=== PATIENT | female | born 1935 | race Caucasian/White ===

== ENCOUNTER 2019-08-03 14:37 | Inpatient (IN) | payer MEDICARE ==
[2019-08-03] MEDS ORDERED: TORAdol 30 mg Injection IV ONE (15:05)
[2019-08-03] MEDS ORDERED: Zofran 4 MG/2 ML VIAL IV ONE (15:06)
[2019-08-03] MEDS ORDERED: Zofran 4 MG/2 ML VIAL ONE (15:07)
[2019-08-03] MEDS ORDERED: TORAdol 30 mg Injection ONE (15:08)
--- NOTE | 2019-08-03 15:15 | ERPHSYRPT ---
- History of Present Illness Time Seen by Provider: 08/03/19 14:40 Historian: patient Exam Limitations: no limitations Patient Subjective Stated Complaint: Pt states that last night she began having pain in her upper epigastric region that seens wrap around under her breasts and to her neck, states that the pain comes and goes Triage Nursing Assessment: Pt brought herself to the ER and states that one of her daughters can come and get her if needed, hypertensive, rates pain 6/10, states that it feels like spasms in her upper stomach but then she states that she can't stand the pressure of her waistband around her lower abdomen, pulses normal, bowel sounds heard in all 4 quadrants, abdomen is distended and hard and when asked if this was normal the pt did not know, skin n/w/d, last intake was at 1200 Physician History: 84 yo wf w diffuse abdominal pain x 15 hours. Pain is 8/10, cramping, up to a 10 , better w remaining still, worse w movement. Pt has had some nausea but denies V/D/melena/hematochezia/dysuria/hematuria/fever/cough/chest pain/dyspnea. Timing/Duration: other (15 hrs) Activities at Onset: none Quality: cramping Abdominal Pain Onset Location: generalized abdomen Pain Radiation: back Severity of Pain-Max: severe Severity of Pain-Current: severe Modifying Factors: Improves With: movement, walking Associated Symptoms: nausea Previous symptoms: no prior history Allergies/Adverse Reactions: No Known Drug Allergies Allergy (Verified 08/03/19 14:56) Home Medications: Aspirin 81 gm Chew [Baby Aspirin 81 mg Chew] 81 mg PO HS 05/01/13 [History ] Carvedilol 6.25 mg [Coreg 6.25 MG] 12.5 mg PO BID PRN 05/01/13 [History] Losartan Potassium 50 mg [Cozaar 50 MG] 100 mg PO DAILY 05/01/13 [History] Paroxetine HCl 5 mg PO DAILY 05/01/13 [History] Alendronate Sodium 70 mg PO WEEKLY 08/03/19 [History] Amlodipine Besylate 5 mg [Norvasc 5 mg] 5 mg PO DAILY 08/03/19 [History] Atorvastatin Calcium [Lipitor] 80 mg PO DAILY 08/03/19 [History] Furosemide 20 mg [Lasix 20 mg] 20 mg PO DAILY 08/03/19 [History] Hx Tetanus, Diphtheria Vaccination/Date Given: No Hx Influenza Vaccination/Date Given: Yes (2012) Hx Pneumococcal Vaccination/Date Given: Yes Travel Risk - International Travel Have you traveled outside of the country in past 3 weeks: No Have you or anyone close to you been diagnosed with or: No Do your reside in a community with a known COVID-19 case?: Yes If Yes where:: [place] - Coronavirus Screening Has patient experienced Coronavirus symptoms: No - Review of Systems Constitutional: No Symptoms Eyes: No Symptoms Ears, Nose, & Throat: No Symptoms Respiratory: No Symptoms Cardiac: No Symptoms Abdominal/Gastrointestinal: Abdominal Pain, Nausea Genitourinary Symptoms: No Symptoms Musculoskeletal: No Symptoms Skin: No Symptoms Neurological: No Symptoms Psychological: No Symptoms Endocrine: No Symptoms Hematologic/Lymphatic: No Symptoms Immunological/Allergic: No Symptoms - Past Medical History Pertinent Past Medical History: Yes Neurological History: No Pertinent History ENT History: No Pertinent History Cardiac History: High Cholesterol, Hypertension Respiratory History: No Pertinent History Endocrine Medical History: No Pertinent History Musculoskeletal History: No Pertinent History GI Medical History: Diverticulitis, Diverticulosis History: No Pertinent History Psycho-Social History: Depression - Past Surgical History Past Surgical History: Yes Neuro Surgical History: No Pertinent History Cardiac: No Pertinent History Respiratory: No Pertinent History Gastrointestinal: Appendectomy, Bowel Surgery Genitourinary: No Pertinent History Musculoskeletal: No Pertinent History Female Surgical History: Hysterectomy Other Surgical History: plate in left wrist., blocked bowel that required straightening of her colon - Social History Smoking Status: Never smoker Exposure to second hand smoke: No Drug Use: none Patient Lives Alone: Yes Significant Family History: no pertinent family hx - Nursing Vital Signs Nursing Vital Signs: Initial Vital Signs Temperature 97.6 F 08/03/19 14:42 Pulse Rate 65 08/03/19 14:42 Blood Pressure 172/66 08/03/19 14:42 O2 Sat by Pulse Oximetry 99 08/03/19 14:42 Pain Scale Pain Intensity 4 - Physical Exam Eye Exam: PERRL/EOMI, eyes nml inspection Ears, Nose, Throat Exam: normal ENT inspection, TMs normal, pharynx normal Neck Exam: normal inspection, non-tender, supple, full range of motion Respiratory Exam: normal breath sounds, lungs clear, airway intact Cardiovascular Exam: regular rate/rhythm, normal heart sounds, normal peripheral pulses, No murmur Gastrointestinal/Abdomen Exam: soft, tenderness, distention Pelvic Exam: not done Rectal Exam: deferred Back Exam: normal inspection Extremity Exam: normal inspection, normal range of motion Neurologic Exam: alert, oriented x 3, cooperative, fermentation manager II-XII nml as tested, normal mood/affect, nml cerebellar function, nml station & gait, sensation nml, No motor deficits, No sensory deficit Skin Exam: normal color, warm, dry Lymphatic Exam: No adenopathy SpO2 Interpretation: normal SpO2: 99 O2 Delivery: Room Air Ordered Tests: Active Orders 24 hr Category Date Time Status EKG-ER Only STAT Care 08/03/19 15:04 Active IV Insertion STAT Care 08/03/19 15:04 Active ABDOMEN AND PELVIS W CONTRAST [CT] Stat Exams 08/03/19 15:56 Taken AMYLASE Stat Lab 08/03/19 15:00 Completed CBC W DIFF Stat Lab 08/03/19 15:00 Completed CMP Stat Lab 08/03/19 15:00 Completed LIPASE Stat Lab 08/03/19 15:00 Completed TROPONIN Q3H Lab 08/03/19 15:00 Completed TROPONIN Q3H Lab 08/03/19 18:15 Ordered TROPONIN Q3H Lab 08/03/19 21:15 Ordered TROPONIN Q3H Lab 08/04/19 00:15 Ordered TROPONIN Q3H Lab 08/04/19 03:15 Ordered UA W/RFX UR CULTURE Stat Lab 08/03/19 15:14 Completed Medication Summary Discontinued Medications Generic Name Dose Route Start Last Admin Trade Name Myrtle PRN Reason Stop Dose Admin Fentanyl Citrate 50 mcg 08/03/19 15:55 08/03/19 15:59 Sublimaze 100 Mcg/2 Ml IV 08/03/19 15:56 50 mcg STAT ONE Administration Fentanyl Citrate Confirm 08/03/19 15:57 Sublimaze 100 Mcg/2 Ml Administered 08/03/19 15:58 Dose 100 mcg .ROUTE .[facility] ONE Ketorolac Tromethamine 15 mg 08/03/19 15:05 08/03/19 15:11 Toradol 30 Mg Injection IV 08/03/19 15:06 15 mg STAT ONE Administration Ketorolac Tromethamine Confirm 08/03/19 15:08 Toradol 30 Mg Injection Administered 08/03/19 15:09 Dose 30 mg .ROUTE .[facility] ONE Ondansetron HCl 4 mg 08/03/19 15:06 08/03/19 15:11 Zofran 4 Mg/2 Ml Vial IV 08/03/19 15:07 4 mg STAT ONE Administration Ondansetron HCl Confirm 08/03/19 15:07 Zofran 4 Mg/2 Ml Vial Administered 08/03/19 15:08 Dose 4 mg .ROUTE .[facility] ONE Lab/Rad Data: Laboratory Result Diagrams 08/03/19 15:00 08/03/19 15:00 Laboratory Results 08/03/19 08/03/19 08/03/19 Range/Units 15:14 15:00 15:00 WBC (4.0-10.5) K/mm3 RBC (4.1-5.4) M/mm3 Hgb (12.0-16.0) gm/dl Hct (35-47) % MCV (78-100) fl MCH (26-32) pg MCHC (32-36) g/dl RDW (11.5-14.0) % Plt Count (150-450) K/mm3 MPV (7.5-11.0) fl Gran % (36.0-66.0) % Eos # (Auto) (0-0.5) Absolute Lymphs (auto) (1.0-4.6) Absolute Monos (auto) (0.0-1.3) Lymphocytes % (24.0-44.0) % Monocytes % (0.0-12.0) % Eosinophils % (0.00-5.0) % Basophils % (0.0-0.4) % Absolute Granulocytes (1.4-6.9) Basophils # (0-0.4) Sodium 139 (137-145) mmol/L Potassium 3.9 (3.5-5.1) mmol/L Chloride 103 (98-107) mmol/L Carbon Dioxide 27 (22-30) mmol/L Anion Gap 12.3 (5-15) MEQ/L BUN 14 (7-17) mg/dL Creatinine 0.70 (0.52-1.04) mg/dL Estimated GFR > 60.0 ML/MIN Glucose 129 H (74-106) mg/dL Calcium 9.3 (8.4-10.2) mg/dL Total Bilirubin 1.00 (0.2-1.3) mg/dL AST 23 (14-36) U/L ALT 18 (0-35) U/L Alkaline Phosphatase 78 (38-126) U/L Troponin I < 0.012 (0.000-0.034) ng/mL Serum Total Protein 7.3 (6.3-8.2) g/dL Albumin 4.4 (3.5-5.0) g/dL Amylase 65 (30-110) U/L Lipase 170 (23-300) U/L Urine Color YELLOW (YELLOW) Urine Appearance CLEAR (CLEAR) Urine pH 5.0 (5-6) Ur Specific [place] 1.013 (1.005-1.025) Urine Protein NEGATIVE (Negative) Urine Ketones NEGATIVE (NEGATIVE) Urine Blood NEGATIVE (0-5) Jean/ul Urine Nitrite NEGATIVE (NEGATIVE) Urine Bilirubin NEGATIVE (NEGATIVE) Urine Urobilinogen NEGATIVE (0-1) mg/dL Ur Leukocyte Esterase TRACE (NEGATIVE) Urine WBC (Auto) 3-5 (0-5) /HPF Urine RBC (Auto) NONE (0-2) /HPF U Epithel Cells (Auto) NONE (FEW) /HPF Urine Bacteria (Auto) NONE (NEGATIVE) /HPF Urine Mucus (Auto) SLIGHT (NEGATIVE) /HPF Urine Culture Reflexed NO (NO) Urine Glucose NEGATIVE (NEGATIVE) mg/dL 08/03/19 Range/Units 15:00 WBC 7.8 (4.0-10.5) K/mm3 RBC 4.27 (4.1-5.4) M/mm3 Hgb 12.9 (12.0-16.0) gm/dl Hct 40.1 (35-47) % MCV 93.9 (78-100) fl MCH 30.2 (26-32) pg MCHC 32.2 (32-36) g/dl RDW 13.8 (11.5-14.0) % Plt Count 159 (150-450) K/mm3 MPV 11.0 (7.5-11.0) fl Gran % 81.4 H (36.0-66.0) % Eos # (Auto) 0.05 (0-0.5) Absolute Lymphs (auto) 0.67 L (1.0-4.6) Absolute Monos (auto) 0.72 (0.0-1.3) Lymphocytes % 8.6 L (24.0-44.0) % Monocytes % 9.3 (0.0-12.0) % Eosinophils % 0.6 (0.00-5.0) % Basophils % 0.1 (0.0-0.4) % Absolute Granulocytes 6.32 (1.4-6.9) Basophils # 0.01 (0-0.4) Sodium (137-145) mmol/L Potassium (3.5-5.1) mmol/L Chloride (98-107) mmol/L Carbon Dioxide (22-30) mmol/L Anion Gap (5-15) MEQ/L BUN (7-17) mg/dL Creatinine (0.52-1.04) mg/dL Estimated GFR ML/MIN Glucose (74-106) mg/dL Calcium (8.4-10.2) mg/dL Total Bilirubin (0.2-1.3) mg/dL AST (14-36) U/L ALT (0-35) U/L Alkaline Phosphatase (38-126) U/L Troponin I (0.000-0.034) ng/mL Serum Total Protein (6.3-8.2) g/dL Albumin (3.5-5.0) g/dL Amylase (30-110) U/L Lipase (23-300) U/L Urine Color (YELLOW) Urine Appearance (CLEAR) Urine pH (5-6) Ur Specific [place] (1.005-1.025) Urine Protein (Negative) Urine Ketones (NEGATIVE) Urine Blood (0-5) Jean/ul Urine Nitrite (NEGATIVE) Urine Bilirubin (NEGATIVE) Urine Urobilinogen (0-1) mg/dL Ur Leukocyte Esterase (NEGATIVE) Urine WBC (Auto) (0-5) /HPF Urine RBC (Auto) (0-2) /HPF U Epithel Cells (Auto) (FEW) /HPF Urine Bacteria (Auto) (NEGATIVE) /HPF Urine Mucus (Auto) (NEGATIVE) /HPF Urine Culture Reflexed (NO) Urine Glucose (NEGATIVE) mg/dL - Progress Progress Note: 08/03/19 16:35 No significant improvement in pain after 15mg IV toradol given, so 50mcg IV Fentanyl given 08/03/19 16:55 Pain improved after 50umg IV Fentanyl 08/03/19 17:07 Admit to hospitalist per Dr. Donis who will see pt later tonight. Wants NG tube. 08/03/19 17:09 Obs Mewd-surg per Dr. Savage Discussed with Dr.: Erendira, Other Counseled pt/family regarding: lab results, diagnosis - Departure Departure Disposition: Observation Clinical Impression: Small bowel obstruction Condition: Stable Critical Care Time: No Referrals: PRUDENCE MICHAELS MD [Family Provider] -
[2019-08-03 15:24] LABS: Absolute Neutrophil Ct (ANC) 6.32 (1.4-6.9); BASOPHIL % 0.1 % (0.0-0.4); Basophil (Absolute #) 0.01 (0-0.4); Eosinophil % 0.6 % (0.00-5.0); Eosinophil (Absolute #) 0.05 (0-0.5); Hematocrit 40.1 % (35-47); Hemoglobin 12.9 gm/dl (12.0-16.0); Lymphocyte (Absolute #) 0.67 (1.0-4.6); Lymphocytes % 8.6 % (24.0-44.0); Mean Cell Volume 93.9 fl (78-100); Mean Corpuscular Hemoglobin 30.2 pg (26-32); Mean Corpuscular Hgb Concent. 32.2 g/dl (32-36); Monocyte (Absolute #) 0.72 (0.0-1.3); Monocytes % 9.3 % (0.0-12.0); Neutrophil % 81.4 % (36.0-66.0); Platelet Count 159 K/mm3 (150-450); Red Blood Count 4.27 M/mm3 (4.1-5.4); Red Cell Distribution Width 13.8 % (11.5-14.0); White Blood Count 7.8 K/mm3 (4.0-10.5)
[2019-08-03 15:26] LABS: ALBUMIN 4.4 g/dL (3.5-5.0); ALKALINE PHOSPHATASE 78 U/L (38-126); AMYLASE 65 U/L (30-110); ANION GAP 12.3 MEQ/L (5-15); BLOOD UREA NITROGEN 14 mg/dL (7-17); CHLORIDE 103 mmol/L (98-107); Calcium 9.3 mg/dL (8.4-10.2); Carbon Dioxide 27 mmol/L (22-30); Glucose 129 mg/dL (74-106); LIPASE 170 U/L (23-300); Potassium 3.9 mmol/L (3.5-5.1); SGOT/AST 23 U/L (14-36); SGPT/ALT 18 U/L (0-35); SODIUM 139 mmol/L (137-145); Total Protein 7.3 g/dL (6.3-8.2)
[2019-08-03 15:28] LABS: Appearance CLEAR (CLEAR); Bilirubin NEGATIVE (NEGATIVE); Blood NEGATIVE Ery/ul (0-5); Glucose NEGATIVE (NEGATIVE); Ketones NEGATIVE (NEGATIVE); Leukocyte Esterase TRACE (NEGATIVE); Mucus SLIGHT /HPF (NEGATIVE); Nitrite NEGATIVE (NEGATIVE); Protein,Urine Dip NEGATIVE (Negative); Specific Gravity 1.013 (1.005-1.025); Urobilinogen NEGATIVE mg/dL (0-1)
[2019-08-03] MEDS ORDERED: SUBLIMAZE 100 MCG/2 ML IV ONE ×2 (15:55→17:16)
[2019-08-03] MEDS ORDERED: SUBLIMAZE 100 MCG/2 ML ONE ×2 (15:57→17:18)
[2019-08-03] MEDS: Sodium Chloride 0.9% 1000 ML 1,000 ML IV SCH (17:19)
--- NOTE | 2019-08-03 21:07 | XRAY ---
Indication: Stomach pain. Nausea and bloating. Multiple contiguous axial images obtained through the abdomen and pelvis using 80 cc Isovue 370 contrast only. Comparison: May 01, 2013. Lung bases demonstrates minimal bilateral dependent atelectasis. No infiltrate or effusion. Heart is not enlarged. Slightly enlarging small hilar hernia. Stable distal paraesophageal calcified nodes. Stomach is mildly distended with food/fluid. Duodenal and jejunal bowel loops are again fluid distended up to 4 cm with fluid leveling. This is seen up to the right lower quadrant small bowel anastomosis with the more distal ileal bowel loops and colon slightly decompressed favoring partial small bowel obstruction. No free fluid/air. Stable mild descending and sigmoid diverticulosis. Gallbladder demonstrates a few new tiny gallstones/gravel. Stable splenic calcified granulomas and hysterectomy. Remaining liver, gallbladder, pancreas, spleen, adrenal glands, kidneys, ureters, and bladder appear unremarkable. Stable mild aortoiliac calcifications. No AAA or pathological retroperitoneal lymphadenopathy. Osseous structures intact again with mild degenerative changes throughout the spine. Impression: 1. CT features favoring partial distal small bowel obstruction. Transition point right lower quadrant anastomosis. No free fluid/air. 2. New tiny gallstones/gravel. 3. Again incidental colonic diverticulosis, hiatal hernia, and evidence for old granulomatous disease.
[2019-08-03] MEDS: DILAUDID 2 MG INJECTION IV PRN (21:10)
[2019-08-03] MEDS ORDERED: FLAGYL 500 MG IVPB 500 MG/100 ML BAG IV SCH (22:00)
[2019-08-03] MEDS: Ativan 2 MG/1 ML VIAL IV PRN (22:53)
[2019-08-03] MEDS: Zofran 4 MG/2 ML VIAL IV PRN (22:53)
[2019-08-03] MEDS ORDERED: FLAGYL 500 MG IVPB 500 MG/100 ML BAG IV ONE (23:30)
[2019-08-03] MEDS: Cipro 500 MG PO SCH (23:36)
[2019-08-04] MEDS: Sodium Chloride 0.9% 1000 ML 1,000 ML IV SCH ×3 (01:27→19:46)
[2019-08-04] MEDS: DILAUDID 2 MG INJECTION IV PRN ×4 (01:28→11:13)
[2019-08-04 03:33] LABS: ALBUMIN 3.8 g/dL (3.5-5.0); ALKALINE PHOSPHATASE 67 U/L (38-126); ANION GAP 8.7 MEQ/L (5-15); BLOOD UREA NITROGEN 14 mg/dL (7-17); CHLORIDE 107 mmol/L (98-107); Calcium 8.6 mg/dL (8.4-10.2); Carbon Dioxide 26 mmol/L (22-30); Creatinine 1 0.69 mg/dL (0.52-1.04); Glucose 111 mg/dL (74-106); Potassium 3.8 mmol/L (3.5-5.1); SGOT/AST 21 U/L (14-36); SGPT/ALT 15 U/L (0-35); SODIUM 138 mmol/L (137-145); Total Protein 6.4 g/dL (6.3-8.2)
[2019-08-04 03:40] LABS: Absolute Neutrophil Ct (ANC) 6.62 (1.4-6.9); BASOPHIL % 0.1 % (0.0-0.4); Basophil (Absolute #) 0.01 (0-0.4); Eosinophil (Absolute #) 0.08 (0-0.5); Hematocrit 37.9 % (35-47); Hemoglobin 12.3 gm/dl (12.0-16.0); Lymphocyte (Absolute #) 0.81 (1.0-4.6); Lymphocytes % 9.6 % (24.0-44.0); Mean Cell Volume 94.3 fl (78-100); Mean Corpuscular Hemoglobin 30.6 pg (26-32); Mean Corpuscular Hgb Concent. 32.5 g/dl (32-36); Monocyte (Absolute #) 0.88 (0.0-1.3); Monocytes % 10.5 % (0.0-12.0); Neutrophil % 78.8 % (36.0-66.0); Platelet Count 144 K/mm3 (150-450); Red Blood Count 4.02 M/mm3 (4.1-5.4); White Blood Count 8.4 K/mm3 (4.0-10.5)
[2019-08-04] MEDS: Zofran 4 MG/2 ML VIAL IV PRN ×2 (04:57→11:12)
[2019-08-04] MEDS ORDERED: Morphine PCA 1 MG/ML 30 ML IV PRN (12:32)
--- NOTE | 2019-08-04 12:40 | PCM.HP ---
History of Present Illness - Chief Complaint Chief Complaint: small bowel obstruction History of Present Illness: is a 84 year old female pt of Dr. Gary in with hx HTN and bowel obstruction (in 2013) who came to ER with 2 nights of abd pain. She denies vomiting or fever; pain was generalized in the abdomen, spasmodic, 10/10 at admission, radiating to bilateral back. Her last BM was yesterday morning, was basically normally although a little "chunky." Currently pain is 7-8/10. She came through the ER and was given toradol with no relief; IV fentanyl is giving some relief but doesn't last long. An NG tube was placed per Dr. Noe, who saw the pt today and started her on IV levaquin and flagyl owing to some bowel thickening on CT scan (other findings included partial distal SBO with transition point at RLQ anastomosis, tiny gallstones, and chronic findings). Her WBC count was nl. Amylase and lipase nl. - Review of Systems Constitutional: Weakness (today) Ears, Nose, & Throat: Sinus Drainage Respiratory: Cough (slight chronic) Abdominal/Gastrointestinal: Abdominal Pain Psychological: No Anxiety, No Depression, No Suicidal Ideations All Other Systems: Reviewed and Negative Medications & Allergies Home Medications: Home Medication List Carvedilol 6.25 mg [Coreg 6.25 MG] 12.5 mg PO BID 05/01/13 [History Confirmed 08/03/19] Losartan Potassium 50 mg [Cozaar 50 MG] 100 mg PO DAILY 05/01/13 [History Confirmed 08/03/19] Paroxetine HCl 5 mg PO DAILY 05/01/13 [History Confirmed 08/03/19] Alendronate Sodium 70 mg PO WEEKLY 08/03/19 [History Confirmed 08/03/19] Amlodipine Besylate 5 mg [Norvasc 5 mg] 5 mg PO DAILY 08/03/19 [History Confirmed 08/03/19] Atorvastatin Calcium [Lipitor] 80 mg PO DAILY 08/03/19 [History Confirmed ] Cholecalciferol (Vitamin D3) [Vitamin D3] 25 mcg PO DAILY 08/03/19 [History Confirmed 08/03/19] Furosemide 20 mg [Lasix 20 mg] 20 mg PO DAILY 08/03/19 [History Confirmed 08/03/19] Nitroglycerin 0.4 mg Tablet [Nitrostat 0.4 MG Tablet] 0.4 mg SL PRN [History] Vit C/E/Zn/Coppr/Lutein/Zeaxan [Preservision Areds 2 Softgel] 1 each PO BID [History Confirmed 08/03/19] Allergies/Adverse Reactions: Allergies Allergy/AdvReac Type Severity Reaction Status Date / Time No Known Drug Allergies Allergy Verified 08/03/19 14:56 - Past Medical History Past Medical History: Yes Neurological History: No Pertinent History ENT History: No Pertinent History Cardiac History: High Cholesterol, Hypertension Respiratory History: No Pertinent History Endocrine Medical History: No Pertinent History Musculoskelatal History: No Pertinent History GI Medical History: Diverticulitis, Diverticulosis History: No Pertinent History Pyscho-Social History: Depression Reproductive Disorders: No Pertinent History - Female History Are you now?: No - Past Surgical History Past Surgical History: Yes Neuro Surgical History: No Pertinent History Cardiac History: Cardiac Catheterization, Cardiac Stent Respiratory Surgery: No Pertinent History GI Surgical History: Appendectomy, Bowel Surgery Genitourinary Surgical Hx: No Pertinent History Musculskeletal Surgical Hx: No Pertinent History Female Surgical History: Hysterectomy Other Surgical History: plate in left wrist., blocked bowel that required straightening of her colon - Social History Smoking Status: Never smoker Exposure to second hand smoke: Yes Alcohol: Daily Drug Use: none Significant Family History: no pertinent family hx - Physical Exam Vital Signs: Vital Signs - 24 hr Temp Pulse Resp BP Pulse Ox 08/04/19 11:51 98.7 F 79 20 146/65 93 L 08/04/19 08:00 98.1 F 78 20 155/67 93 L 08/04/19 04:00 97.7 F 64 18 161/70 94 L 08/04/19 00:00 98.6 F 75 16 125/60 91 L 08/03/19 20:15 97.7 F 64 18 161/70 94 L 08/03/19 20:00 97.7 F 64 18 161/70 94 L 08/03/19 17:43 76 16 153/58 93 L 08/03/19 17:25 68 18 167/94 95 08/03/19 17:17 99 08/03/19 16:39 66 16 143/64 95 08/03/19 16:04 68 18 151/70 94 L 08/03/19 14:42 97.6 F 65 172/66 99 General Appearance: no apparent distress, alert Neurologic Exam: oriented x 3, cooperative Eye Exam: eyes nml inspection Ears, Nose, Throat Exam: moist mucous membranes, other (NG tube in place, intermittent suction) Neck Exam: normal inspection Respiratory Exam: normal breath sounds, lungs clear, No crackles/rales, No rhonchi, No wheezing Cardiovascular Exam: regular rate/rhythm, normal heart sounds, No murmur Gastrointestinal/Abdomen Exam: soft, normal bowel sounds, tenderness ( generalized, mild), distention, No mass, No guarding, No rebound Back Exam: normal inspection, No rash Extremity Exam: normal inspection, No pedal edema, No swelling Skin Exam: normal color, warm, dry, No rash Results - Labs Lab/Micro Results: Lab Results-Last 24 Hours 08/03/19 08/03/19 08/03/19 Range/Units 15:00 15:00 15:00 WBC 7.8 (4.0-10.5) K/mm3 RBC 4.27 (4.1-5.4) M/mm3 Hgb 12.9 (12.0-16.0) gm/dl Hct 40.1 (35-47) % MCV 93.9 (78-100) fl MCH 30.2 (26-32) pg MCHC 32.2 (32-36) g/dl RDW 13.8 (11.5-14.0) % Plt Count 159 (150-450) K/mm3 MPV 11.0 (7.5-11.0) fl Gran % 81.4 H (36.0-66.0) % Eos # (Auto) 0.05 (0-0.5) Absolute Lymphs (auto) 0.67 L (1.0-4.6) Absolute Monos (auto) 0.72 (0.0-1.3) Lymphocytes % 8.6 L (24.0-44.0) % Monocytes % 9.3 (0.0-12.0) % Eosinophils % 0.6 (0.00-5.0) % Basophils % 0.1 (0.0-0.4) % Absolute Granulocytes 6.32 (1.4-6.9) Basophils # 0.01 (0-0.4) Sodium 139 (137-145) mmol/L Potassium 3.9 (3.5-5.1) mmol/L Chloride 103 (98-107) mmol/L Carbon Dioxide 27 (22-30) mmol/L Anion Gap 12.3 (5-15) MEQ/L BUN 14 (7-17) mg/dL Creatinine 0.70 (0.52-1.04) mg/dL Estimated GFR > 60.0 ML/MIN Glucose 129 H (74-106) mg/dL Calcium 9.3 (8.4-10.2) mg/dL Total Bilirubin 1.00 (0.2-1.3) mg/dL AST 23 (14-36) U/L ALT 18 (0-35) U/L Alkaline Phosphatase 78 (38-126) U/L Troponin I < 0.012 (0.000-0.034) ng/mL Serum Total Protein 7.3 (6.3-8.2) g/dL Albumin 4.4 (3.5-5.0) g/dL Amylase 65 (30-110) U/L Lipase 170 (23-300) U/L Urine Color (YELLOW) Urine Appearance (CLEAR) Urine pH (5-6) Ur Specific [place] (1.005-1.025) Urine Protein (Negative) Urine Ketones (NEGATIVE) Urine Blood (0-5) Jean/ul Urine Nitrite (NEGATIVE) Urine Bilirubin (NEGATIVE) Urine Urobilinogen (0-1) mg/dL Ur Leukocyte Esterase (NEGATIVE) Urine WBC (Auto) (0-5) /HPF Urine RBC (Auto) (0-2) /HPF U Epithel Cells (Auto) (FEW) /HPF Urine Bacteria (Auto) (NEGATIVE) /HPF Urine Mucus (Auto) (NEGATIVE) /HPF Urine Culture Reflexed (NO) Urine Glucose (NEGATIVE) mg/dL 08/03/19 08/03/19 08/03/19 Range/Units 15:14 18:16 21:04 WBC (4.0-10.5) K/mm3 RBC (4.1-5.4) M/mm3 Hgb (12.0-16.0) gm/dl Hct (35-47) % MCV (78-100) fl MCH (26-32) pg MCHC (32-36) g/dl RDW (11.5-14.0) % Plt Count (150-450) K/mm3 MPV (7.5-11.0) fl Gran % (36.0-66.0) % Eos # (Auto) (0-0.5) Absolute Lymphs (auto) (1.0-4.6) Absolute Monos (auto) (0.0-1.3) Lymphocytes % (24.0-44.0) % Monocytes % (0.0-12.0) % Eosinophils % (0.00-5.0) % Basophils % (0.0-0.4) % Absolute Granulocytes (1.4-6.9) Basophils # (0-0.4) Sodium (137-145) mmol/L Potassium (3.5-5.1) mmol/L Chloride (98-107) mmol/L Carbon Dioxide (22-30) mmol/L Anion Gap (5-15) MEQ/L BUN (7-17) mg/dL Creatinine (0.52-1.04) mg/dL Estimated GFR ML/MIN Glucose (74-106) mg/dL Calcium (8.4-10.2) mg/dL Total Bilirubin (0.2-1.3) mg/dL AST (14-36) U/L ALT (0-35) U/L Alkaline Phosphatase (38-126) U/L Troponin I < 0.012 < 0.012 (0.000-0.034) ng/mL Serum Total Protein (6.3-8.2) g/dL Albumin (3.5-5.0) g/dL Amylase (30-110) U/L Lipase (23-300) U/L Urine Color YELLOW (YELLOW) Urine Appearance CLEAR (CLEAR) Urine pH 5.0 (5-6) Ur Specific [place] 1.013 (1.005-1.025) Urine Protein NEGATIVE (Negative) Urine Ketones NEGATIVE (NEGATIVE) Urine Blood NEGATIVE (0-5) Jean/ul Urine Nitrite NEGATIVE (NEGATIVE) Urine Bilirubin NEGATIVE (NEGATIVE) Urine Urobilinogen NEGATIVE (0-1) mg/dL Ur Leukocyte Esterase TRACE (NEGATIVE) Urine WBC (Auto) 3-5 (0-5) /HPF Urine RBC (Auto) NONE (0-2) /HPF U Epithel Cells (Auto) NONE (FEW) /HPF Urine Bacteria (Auto) NONE (NEGATIVE) /HPF Urine Mucus (Auto) SLIGHT (NEGATIVE) /HPF Urine Culture Reflexed NO (NO) Urine Glucose NEGATIVE (NEGATIVE) mg/dL 08/04/19 08/04/19 08/04/19 Range/Units 00:22 03:15 03:15 WBC 8.4 (4.0-10.5) K/mm3 RBC 4.02 L (4.1-5.4) M/mm3 Hgb 12.3 (12.0-16.0) gm/dl Hct 37.9 (35-47) % MCV 94.3 (78-100) fl MCH 30.6 (26-32) pg MCHC 32.5 (32-36) g/dl RDW 14.0 (11.5-14.0) % Plt Count 144 L (150-450) K/mm3 MPV 11.0 (7.5-11.0) fl Gran % 78.8 H (36.0-66.0) % Eos # (Auto) 0.08 (0-0.5) Absolute Lymphs (auto) 0.81 L (1.0-4.6) Absolute Monos (auto) 0.88 (0.0-1.3) Lymphocytes % 9.6 L (24.0-44.0) % Monocytes % 10.5 (0.0-12.0) % Eosinophils % 1.0 (0.00-5.0) % Basophils % 0.1 (0.0-0.4) % Absolute Granulocytes 6.62 (1.4-6.9) Basophils # 0.01 (0-0.4) Sodium (137-145) mmol/L Potassium (3.5-5.1) mmol/L Chloride (98-107) mmol/L Carbon Dioxide (22-30) mmol/L Anion Gap (5-15) MEQ/L BUN (7-17) mg/dL Creatinine (0.52-1.04) mg/dL Estimated GFR ML/MIN Glucose (74-106) mg/dL Calcium (8.4-10.2) mg/dL Total Bilirubin (0.2-1.3) mg/dL AST (14-36) U/L ALT (0-35) U/L Alkaline Phosphatase (38-126) U/L Troponin I < 0.012 < 0.012 (0.000-0.034) ng/mL Serum Total Protein (6.3-8.2) g/dL Albumin (3.5-5.0) g/dL Amylase (30-110) U/L Lipase (23-300) U/L Urine Color (YELLOW) Urine Appearance (CLEAR) Urine pH (5-6) Ur Specific [place] (1.005-1.025) Urine Protein (Negative) Urine Ketones (NEGATIVE) Urine Blood (0-5) Jean/ul Urine Nitrite (NEGATIVE) Urine Bilirubin (NEGATIVE) Urine Urobilinogen (0-1) mg/dL Ur Leukocyte Esterase (NEGATIVE) Urine WBC (Auto) (0-5) /HPF Urine RBC (Auto) (0-2) /HPF U Epithel Cells (Auto) (FEW) /HPF Urine Bacteria (Auto) (NEGATIVE) /HPF Urine Mucus (Auto) (NEGATIVE) /HPF Urine Culture Reflexed (NO) Urine Glucose (NEGATIVE) mg/dL /30/20 Range/Units 03:15 WBC (4.0-10.5) K/mm3 RBC (4.1-5.4) M/mm3 Hgb (12.0-16.0) gm/dl Hct (35-47) % MCV (78-100) fl MCH (26-32) pg MCHC (32-36) g/dl RDW (11.5-14.0) % Plt Count (150-450) K/mm3 MPV (7.5-11.0) fl Gran % (36.0-66.0) % Eos # (Auto) (0-0.5) Absolute Lymphs (auto) (1.0-4.6) Absolute Monos (auto) (0.0-1.3) Lymphocytes % (24.0-44.0) % Monocytes % (0.0-12.0) % Eosinophils % (0.00-5.0) % Basophils % (0.0-0.4) % Absolute Granulocytes (1.4-6.9) Basophils # (0-0.4) Sodium 138 (137-145) mmol/L Potassium 3.8 (3.5-5.1) mmol/L Chloride 107 (98-107) mmol/L Carbon Dioxide 26 (22-30) mmol/L Anion Gap 8.7 (5-15) MEQ/L BUN 14 (7-17) mg/dL Creatinine 0.69 (0.52-1.04) mg/dL Estimated GFR > 60.0 ML/MIN Glucose 111 H (74-106) mg/dL Calcium 8.6 (8.4-10.2) mg/dL Total Bilirubin 0.90 (0.2-1.3) mg/dL AST 21 (14-36) U/L ALT 15 (0-35) U/L Alkaline Phosphatase 67 (38-126) U/L Troponin I (0.000-0.034) ng/mL Serum Total Protein 6.4 (6.3-8.2) g/dL Albumin 3.8 (3.5-5.0) g/dL Amylase (30-110) U/L Lipase (23-300) U/L Urine Color (YELLOW) Urine Appearance (CLEAR) Urine pH (5-6) Ur Specific [place] (1.005-1.025) Urine Protein (Negative) Urine Ketones (NEGATIVE) Urine Blood (0-5) Jean/ul Urine Nitrite (NEGATIVE) Urine Bilirubin (NEGATIVE) Urine Urobilinogen (0-1) mg/dL Ur Leukocyte Esterase (NEGATIVE) Urine WBC (Auto) (0-5) /HPF Urine RBC (Auto) (0-2) /HPF U Epithel Cells (Auto) (FEW) /HPF Urine Bacteria (Auto) (NEGATIVE) /HPF Urine Mucus (Auto) (NEGATIVE) /HPF Urine Culture Reflexed (NO) Urine Glucose (NEGATIVE) mg/dL - Radiology Impressions Radiology Exams & Impressions: Radiology Procedures Category Date Time Status ABDOMEN 2 VIEW Routine Exams 08/04/19 06:00 Taken ABDOMEN 2 VIEW Routine Exams 08/05/19 06:00 Ordered ABDOMEN AND PELVIS W CONTRAST [CT] Stat Exams 08/03/19 15:56 Completed Assessment/Plan (1) Small bowel obstruction Current Visit: Yes Status: Acute Assessment & Plan: Per Dr. Noe, thank you. Continue NG tube, await improvement. Labs are fine and vitals are stable. Treating with Levaquin and flagyl for possible enteritis. Code(s): K56.69 - OTHER INTESTINAL OBSTRUCTION * DO NOT USE * (2) HTN (hypertension) Current Visit: Yes Status: Acute Qualifiers: Hypertension type: essential hypertension Qualified Code(s): I10 - Essential (primary) hypertension Assessment & Plan: restart home BP meds, pt thinks she can swallow them fine. Code(s): I10 - ESSENTIAL (PRIMARY) HYPERTENSION
[2019-08-04] MEDS: Levofloxacin 500MG/100ML D5W 500 MG/100 ML BAG IV SCH (13:07)
[2019-08-04] MEDS ORDERED: DILAUDID 2 MG INJECTION IV PRN ×2 (13:13→17:01)
[2019-08-04] MEDS: ENOXAPARIN SODIUM SQ SCH (15:07)
[2019-08-04] MEDS: FLAGYL 500 MG IVPB 500 MG/100 ML BAG IV SCH ×2 (15:07→22:04)
[2019-08-04] MEDS ORDERED: MORPHINE SULFATE 10 MG/ML IV ONE (16:27)
[2019-08-04] MEDS ORDERED: MORPHINE SULFATE 10 MG/ML ONE (16:34)
[2019-08-04] MEDS: Phenergan 25 MG INJ IV PRN ×2 (16:40→22:21)
[2019-08-04] MEDS: Cipro 500 MG PO SCH (18:26)
--- NOTE | 2019-08-04 20:31 | XRAY ---
Indication: Follow-up small bowel obstruction one day earlier. 2 view abdomen demonstrates mild fluid distended small bowel loops with fluid leveling and paucity of distal colonic bowel gas favoring distal small bowel obstruction. No free air. Solid organs unremarkable. Osseous structures intact with mild degenerative changes throughout the spine and minimal levoscoliosis. Lung bases demonstrates NG tube tip distal esophagus. Impression: 1. Distal small bowel obstruction as detailed. 2. NG tube tip distal esophagus. Recommend advancement into the stomach. Comment: Preliminary interpretation was made by [facility]. No critical discrepancy.
[2019-08-04] MEDS: COREG 12.5 MG PO SCH (22:03)
[2019-08-05] MEDS: Ativan 2 MG/1 ML VIAL IV PRN (02:26)
[2019-08-05] MEDS: Sodium Chloride 0.9% 1000 ML 1,000 ML IV SCH ×2 (03:11→13:35)
[2019-08-05] MEDS: FLAGYL 500 MG IVPB 500 MG/100 ML BAG IV SCH ×3 (05:42→20:38)
[2019-08-05] MEDS: Zofran 4 MG/2 ML VIAL IV PRN (06:36)
[2019-08-05 06:52] LABS: Hematocrit 38.3 % (35-47); Hemoglobin 12.2 gm/dl (12.0-16.0); Mean Corpuscular Hemoglobin 30.6 pg (26-32); Mean Corpuscular Hgb Concent. 31.9 g/dl (32-36); Mean Platelet Volume 11.4 fl (7.5-11.0); Platelet Count 123 K/mm3 (150-450); Red Blood Count 3.99 M/mm3 (4.1-5.4); Red Cell Distribution Width 14.3 % (11.5-14.0); White Blood Count 5.1 K/mm3 (4.0-10.5)
[2019-08-05 07:01] LABS: ALBUMIN 3.5 g/dL (3.5-5.0); ALKALINE PHOSPHATASE 53 U/L (38-126); ANION GAP 13.1 MEQ/L (5-15); BLOOD UREA NITROGEN 10 mg/dL (7-17); CHLORIDE 106 mmol/L (98-107); Calcium 8.4 mg/dL (8.4-10.2); Carbon Dioxide 25 mmol/L (22-30); Creatinine 1 0.61 mg/dL (0.52-1.04); Glucose 119 mg/dL (74-106); SGOT/AST 20 U/L (14-36); SGPT/ALT 13 U/L (0-35); SODIUM 141 mmol/L (137-145)
--- NOTE | 2019-08-05 07:33 | XRAY ---
Indication: Follow-up small bowel obstruction. Comparison: One day earlier. 2 view abdomen again demonstrates mild fluid distended small bowel loops with fluid leveling and paucity distal colonic bowel gas unchanged from previous exam again favoring distal small bowel obstruction. No free air. Again contrast distended urinary bladder from recent CT. Remaining solid organs unremarkable. NG tube has been advanced with the tip now in the proximal stomach. Lung bases demonstrates new small bibasilar effusions/atelectasis with borderline cardiomegaly. Impression: 1. Stable small bowel obstruction. 2. NG tube tip advancement with tip in proximal stomach. 3. New bibasilar effusions/atelectasis and borderline cardiomegaly. Rule out mild cardiac decompensation/fluid overload. Comment: Preliminary interpretation was made by [facility] who does not report lung base findings.
[2019-08-05] MEDS ORDERED: Lasix 40 MG/4 ML IV ONE (08:09)
[2019-08-05] MEDS: COREG 12.5 MG PO SCH ×2 (08:31→20:38)
[2019-08-05] MEDS: ENOXAPARIN SODIUM SQ SCH (08:31)
[2019-08-05] MEDS: Levofloxacin 500MG/100ML D5W 500 MG/100 ML BAG IV SCH (08:33)
[2019-08-05] MEDS ORDERED: APRESOLINE 20 MG/ML INJ IV PRN (13:42)
--- NOTE | 2019-08-05 13:43 | PCM.NOTE ---
Date and Time: 08/05/19 9710 Subjective Assessment: Pt yesterday was asking to be transferred, as was pt's family. RN explained that since [facility] did not offer a higher level of care, we would not be able to seek transfer, but if pt wanted to d/c then go to ER she could sign out AMA to do that. She was actually having pain/nausea issues yesterday. This morning Dr. Noe advanced the NG tube a bit farther down into the stomach. Pt's nausea/pain much better controlled on phenergan. She is feeling stronger today, up in the chair. Her BP have been 140s-170s systolic. Last night pt's xray showed mild cardiac decompensation and she was give 40mg IV lasix with good urine output. - Review of Systems Constitutional: No Fever (tmax 99.0) Abdominal/Gastrointestinal: Vomiting (last night pt vomited) Objective Exam General Appearance: no apparent distress, alert Neurologic Exam: oriented x 3, cooperative Skin Exam: normal color, warm, dry, No rash Ears, Nose, Throat Exam: moist mucous membranes, other (NG in place, to intermittent suction) Respiratory Exam: normal breath sounds, lungs clear, No crackles/rales, No rhonchi, No wheezing Cardiovascular Exam: normal heart sounds, irregular (regularly irregular), No murmur Gastrointestinal/Abdomen Exam: soft, No normal bowel sounds (hypoactive but present), No tenderness, No distention, No mass, No guarding, No rebound Extremity Exam: swelling (trace LE edema) OBJECTIVE DATA Vital Signs: Vital Signs - 24 hr Temp Pulse Resp BP Pulse Ox 08/05/19 12:00 97.6 F 78 18 85/46 92 L 08/05/19 08:00 97.7 F 79 14 145/55 92 L 08/05/19 07:25 94 L 08/05/19 03:57 97.8 F 77 18 146/61 95 08/04/19 23:40 98.5 F 89 20 159/66 96 08/04/19 20:00 98.8 F 105 H 17 173/66 92 L 08/04/19 19:45 94 L 08/04/19 17:24 95 08/04/19 15:46 99.0 F 83 16 179/74 93 L 08/04/19 15:39 95 Pain Assessment - Last Documented Pain Intensity 0 Pain Scale Used 0-10 Pain Scale Intake and Output: Intake & Output 08/03/19 08/04/19 08/05/19 08/06/19 11:59 11:59 11:59 11:59 Intake Total 1230 3504 Output Total 3150 Balance 1230 354 Weight 79.9 kg Lab Results: Lab Results-Last 24 Hours 08/05/19 08/05/19 Range/Units 05:05 05:05 WBC 5.1 (4.0-10.5) K/mm3 RBC 3.99 L (4.1-5.4) M/mm3 Hgb 12.2 (12.0-16.0) gm/dl Hct 38.3 (35-47) % MCV 96.0 (78-100) fl MCH 30.6 (26-32) pg MCHC 31.9 L (32-36) g/dl RDW 14.3 H (11.5-14.0) % Plt Count 123 L (150-450) K/mm3 MPV 11.4 H (7.5-11.0) fl Sodium 141 (137-145) mmol/L Potassium 4.0 (3.5-5.1) mmol/L Chloride 106 (98-107) mmol/L Carbon Dioxide 25 (22-30) mmol/L Anion Gap 13.1 (5-15) MEQ/L BUN 10 (7-17) mg/dL Creatinine 0.61 (0.52-1.04) mg/dL Estimated GFR > 60.0 ML/MIN Glucose 119 H (74-106) mg/dL Calcium 8.4 (8.4-10.2) mg/dL Total Bilirubin 1.00 (0.2-1.3) mg/dL AST 20 (14-36) U/L ALT 13 (0-35) U/L Alkaline Phosphatase 53 (38-126) U/L Serum Total Protein 6.0 L (6.3-8.2) g/dL Albumin 3.5 (3.5-5.0) g/dL Radiology Exams: Radiology Procedures Category Date Time Status ABDOMEN 2 VIEW Routine Exams 08/04/19 06:00 Completed ABDOMEN 2 VIEW Routine Exams 08/05/19 06:00 Completed ABDOMEN 2 VIEW Routine Exams 08/06/19 07:00 Ordered ABDOMEN AND PELVIS W CONTRAST [CT] Stat Exams 08/03/19 15:56 Completed Assessment/Plan (1) Small bowel obstruction Current Visit: Yes Status: Acute Assessment & Plan: continue current mgmt per surgery, thank you. NG in place. Code(s): K56.69 - OTHER INTESTINAL OBSTRUCTION * DO NOT USE * (2) HTN (hypertension) Current Visit: Yes Status: Acute Qualifiers: Hypertension type: essential hypertension Qualified Code(s): I10 - Essential (primary) hypertension Assessment & Plan: will add prn BP med. Code(s): I10 - ESSENTIAL (PRIMARY) HYPERTENSION
[2019-08-05] MEDS ORDERED: Nitrostat 0.4 MG Tablet SL PRN (19:51)
[2019-08-05] MEDS ORDERED: Cozaar 50 MG ONE (20:16)
[2019-08-05] MEDS ORDERED: Paxil 20 MG ONE (20:16)
[2019-08-05] MEDS ORDERED: NORVASC 5 MG ONE (20:17)
[2019-08-05] MEDS: Pepcid 20 MG PO SCH ×2 (20:30→20:58)
[2019-08-05] MEDS: Paxil 20 MG PO SCH (20:57)
[2019-08-05] MEDS: NORVASC 5 MG PO SCH (20:58)
[2019-08-05] MEDS: Cozaar 50 MG PO SCH (20:59)
[2019-08-06] MEDS: Phenergan 25 MG INJ IV PRN ×2 (00:51→10:47)
[2019-08-06] MEDS: Sodium Chloride 0.9% 1000 ML 1,000 ML IV SCH ×2 (01:27→20:16)
[2019-08-06 05:33] LABS: Hematocrit 35.7 % (35-47); Hemoglobin 11.3 gm/dl (12.0-16.0); Mean Corpuscular Hemoglobin 30.4 pg (26-32); Mean Corpuscular Hgb Concent. 31.7 g/dl (32-36); Platelet Count 117 K/mm3 (150-450); Red Blood Count 3.72 M/mm3 (4.1-5.4); Red Cell Distribution Width 14.3 % (11.5-14.0); White Blood Count 5.8 K/mm3 (4.0-10.5)
[2019-08-06 05:49] LABS: ALBUMIN 3.5 g/dL (3.5-5.0); ALKALINE PHOSPHATASE 48 U/L (38-126); ANION GAP 12.6 MEQ/L (5-15); BLOOD UREA NITROGEN 25 mg/dL (7-17); CHLORIDE 105 mmol/L (98-107); Calcium 8.3 mg/dL (8.4-10.2); Carbon Dioxide 25 mmol/L (22-30); Creatinine 1 0.84 mg/dL (0.52-1.04); Glucose 94 mg/dL (74-106); Potassium 3.6 mmol/L (3.5-5.1); SGOT/AST 23 U/L (14-36); SGPT/ALT 12 U/L (0-35); SODIUM 139 mmol/L (137-145); Total Protein 6.4 g/dL (6.3-8.2)
[2019-08-06] MEDS: FLAGYL 500 MG IVPB 500 MG/100 ML BAG IV SCH ×3 (05:54→21:28)
--- NOTE | 2019-08-06 09:54 | CONS ---
CONSULT DATE: 08/03/2019 HISTORY: The patient is an 84 year-old female. She came in with some abdominal cramps. She did have bowel movement this morning. She denies any significant vomiting, according to the patient. She had a little bit of nausea, denied any vomiting or diarrhea. She did have a bowel movement this morning. PAST MEDICAL HISTORY: Hypertension. Hyperlipidemia. Hypercholesterolemia. Heart disease in the past. History of depression, diverticular disease. PAST SURGICAL HISTORY: Prior laparotomy for what sounds like lysis of adhesions. She had appendectomy in the past. She also had part of her colon taken out for diverticular disease in the past. Wrist surgery in the past. Last surgery on her abdomen was six or seven years ago according to the patient. Hysterectomy as well as appendectomy. Partial colectomy for diverticular disease in the past. Laparotomy and lysis of adhesions years ago. MEDICATIONS: Aspirin, carvedilol, losartan, paroxetine, Alendronate, amlodipine, atorvastatin, Furosemide. ALLERGIES: MORPHINE. FAMILY HISTORY: History of cancer in the family. SOCIAL HISTORY: No smoking or alcohol abuse. REVIEW OF SYSTEMS: Fourteen systems reviewed per admission assessment. No chest pain or palpitations other systems negative or noncontributory as above and per preadmission questionnaire. LAB DATA AND TESTS: Troponin was negative. Liver function tests were okay. Lipase was normal. White count 7.8, hemoglobin 12.9, PLT 159,000. CT scan showed some fluid distended proximal small bowel loops. She had some very tiny gallstones, small hiatal hernia, diverticulosis. No free air or collections. PHYSICAL EXAMINATION: GENERAL: No acute distress. HEENT: Sclera nonicteric. NECK: No JVD. CHEST: Equal excursion, nonlabored breathing. CVS: Regular rate and rhythm. ABDOMEN: Soft, mild distention. No rebound. No guarding. No peritoneal signs. No palpable hernia on my exam. EXTREMITIES: No significant edema. NEURO: Alert, moving extremities grossly symmetrically. No gross motor deficits noted. IMPRESSION: Abdominal pain and cramping could be anything from early partial obstruction versus ileus secondary to enteritis or colitis. Either way no emergent surgical intervention necessary. She has a NG in position. Need continued bowel rest, IV hydration, follow serial films, labs and exams. No emergent surgery necessary. She is nontoxic. Soft abdomen at this time. I will follow with you.
[2019-08-06] MEDS: Levofloxacin 500MG/100ML D5W 500 MG/100 ML BAG IV SCH (10:48)
[2019-08-06] MEDS: ENOXAPARIN SODIUM SQ SCH ×2 (10:54→20:14)
--- NOTE | 2019-08-06 13:48 | XRAY ---
Indication: Abdomen pain. Small bowel obstruction. Preliminary production lead abdomen demonstrates mild air distended small bowel loops with paucity of distal colonic bowel gas favoring small bowel obstruction. Incidental right lower quadrant suture material. Approximately 600 cc barium was injected through indwelling NG tube. Multiple overhead radiographs obtained. The 0 minute radiograph demonstrates barium contrast in the stomach and distended small bowel loops. Subsequent delayed images demonstrate mild increasing barium distended small bowel loops unchanged after 4 hours. No contrast seen distal to the right lower quadrant suture material or in the colon. Findings consistent with small bowel obstruction. No extravasation/leak. Impression: Small bowel follow-through exam demonstrates distal small bowel obstruction as detailed. Comment: Study was reviewed with the ordering clinician at 1330 hrs. on August 06, 2019.
[2019-08-06] MEDS ORDERED: ENTEREG 12 MG PO ONE (14:00)
[2019-08-06] MEDS ORDERED: MEFOXIN 2 GM PREMIX** 2 GM/50 ML ML IV SCH (14:00)
[2019-08-06] MEDS ORDERED: Lactated Ringers 1,000 ML IV SCH (14:00)
[2019-08-06] MEDS ORDERED: Decadron 4 MG INJ ONE (14:53)
[2019-08-06] MEDS ORDERED: SUBLIMAZE 100 MCG/2 ML ONE ×2 (14:53→17:22)
[2019-08-06] MEDS ORDERED: Zemuron 100 MG/10 ML ONE (14:53)
[2019-08-06] MEDS ORDERED: Zofran 4 MG/2 ML VIAL ONE (14:53)
[2019-08-06] MEDS ORDERED: DIPRIVAN 200 MG/20 ML IV ONE (14:53)
[2019-08-06] MEDS ORDERED: TORAdol 30 mg Injection ONE ×2 (14:53→17:12)
[2019-08-06] MEDS ORDERED: Ketamine HCl 50 MG/ML ONE (14:54)
[2019-08-06 15:22] LABS: ABO TYPING AB; Antibody Screen NEGATIVE (NEGATIVE); RH TYPING POSITIVE
[2019-08-06] MEDS ORDERED: MARCAINE 0.5%-EPI 1:200,000 VL IJ ONE (16:47)
[2019-08-06] MEDS ORDERED: DILAUDID 2 MG INJECTION ONE (17:28)
[2019-08-06] MEDS ORDERED: NORCO 5/325 MG PO PRN (17:39)
[2019-08-06] MEDS ORDERED: TYLENOL 325 MG PO PRN (17:41)
--- NOTE | 2019-08-06 17:46 | PCM.NOTE ---
Date and Time: 08/06/191741 Subjective Assessment: Patient reports discomfort in her stomach as she is having the small bowel follow through study done as ordered by the general surgeon. Otherwise she has no concerns or complaints. She reports she has had a small bowel obstruction before that required surgery and was told she most likely has scar tissue. - Review of Systems Constitutional: No Symptoms Respiratory: No Symptoms Cardiac: No Symptoms Abdominal/Gastrointestinal: Abdominal Pain Objective Exam General Appearance: no apparent distress, other (NG tube in place/clamped) Neurologic Exam: alert, cooperative, normal mood/affect Skin Exam: normal color, warm, dry Respiratory Exam: normal breath sounds, lungs clear, No crackles/rales, No rhonchi, No wheezing Cardiovascular Exam: regular rate/rhythm, normal heart sounds, No murmur, No friction rub, No gallop Gastrointestinal/Abdomen Exam: soft, normal bowel sounds, No tenderness, No distention OBJECTIVE DATA Vital Signs: Vital Signs - 24 hr Temp Pulse Resp BP Pulse Ox 08/06/19 14:07 99 F 77 16 119/45 92 L 08/06/19 12:00 99 F 77 16 119/45 92 L 08/06/19 07:18 92 L 08/06/19 07:08 94 L 08/06/19 07:00 98.0 F 74 20 119/45 91 L 08/06/19 03:00 97.9 F 74 16 128/59 94 L 08/05/19 23:45 98.2 F 81 20 105/47 94 L 08/05/19 23:30 93 L 08/05/19 20:00 97.7 F 74 17 124/52 94 L Oxygen-Last 24 hours Oxygen Flowrate (L/min)-RT 92 Oxygen Flowrate (L/min)-RT 1 Oxygen Flowrate (L/min)-RT 1 Pain Assessment - Last Documented Pain Intensity 0 Pain Scale Used 0-10 Pain Scale Intake and Output: Intake & Output 08/04/19 08/05/19 08/06/19 08/07/19 06:59 06:59 06:59 06:59 Intake Total 1230 3504 2302 0 Output Total 2350 2050 Balance 1230 1154 252 0 Weight 79.9 kg 79.9 kg 79.6 kg 79.6 kg Lab Results: Lab Results-Last 24 Hours 08/06/19 08/06/1920 Range/Units 04:25 04:25 14:25 WBC 5.8 (4.0-10.5) K/mm3 RBC 3.72 L (4.1-5.4) M/mm3 Hgb 11.3 L (12.0-16.0) gm/dl Hct 35.7 (35-47) % MCV 96.0 (78-100) fl MCH 30.4 (26-32) pg MCHC 31.7 L (32-36) g/dl RDW 14.3 H (11.5-14.0) % Plt Count 117 L (150-450) K/mm3 MPV 10.0 (7.5-11.0) fl Sodium 139 (137-145) mmol/L Potassium 3.6 (3.5-5.1) mmol/L Chloride 105 (98-107) mmol/L Carbon Dioxide 25 (22-30) mmol/L Anion Gap 12.6 (5-15) MEQ/L BUN 25 H (7-17) mg/dL Creatinine 0.84 (0.52-1.04) mg/dL Estimated GFR > 60.0 ML/MIN Glucose 94 (74-106) mg/dL Calcium 8.3 L (8.4-10.2) mg/dL Total Bilirubin 1.00 (0.2-1.3) mg/dL AST 23 (14-36) U/L ALT 12 (0-35) U/L Alkaline Phosphatase 48 (38-126) U/L Serum Total Protein 6.4 (6.3-8.2) g/dL Albumin 3.5 (3.5-5.0) g/dL ABO Group AB Rh Factor POSITIVE Antibody Screen NEGATIVE (NEGATIVE) Radiology Exams: Radiology Procedures Category Date Time Status ABDOMEN 2 VIEW Routine Exams 08/05/19 06:00 Completed SMALL BOWEL SERIES Urgent Exams 08/06/19 13:26 Completed Assessment/Plan (1) Small bowel obstruction Current Visit: Yes Status: Acute Assessment & Plan: General surgeons are managing this. We appreciate their input. Code(s): K56.69 - OTHER INTESTINAL OBSTRUCTION * DO NOT USE * (2) HTN (hypertension) Current Visit: Yes Status: Acute Qualifiers: Hypertension type: essential hypertension Qualified Code(s): I10 - Essential (primary) hypertension Assessment & Plan: Currently well controlled. Code(s): I10 - ESSENTIAL (PRIMARY) HYPERTENSION
[2019-08-06] MEDS: D5W/0.45NS W/ 20mEq KCl 1000 ML 1,000 ML IV SCH (18:09)
[2019-08-06 18:53] LABS: Appearance CLEAR (CLEAR); Bilirubin NEGATIVE (NEGATIVE); Blood NEGATIVE Ery/ul (0-5); Glucose NEGATIVE (NEGATIVE); Ketones MODERATE (NEGATIVE); Leukocyte Esterase TRACE (NEGATIVE); Mucus SLIGHT /HPF (NEGATIVE); Nitrite NEGATIVE (NEGATIVE); Protein,Urine Dip 30 (Negative); Specific Gravity 1.024 (1.005-1.025); Urobilinogen NEGATIVE mg/dL (0-1); WBC 0-2 /HPF (0-5)
[2019-08-06] MEDS ORDERED: DILAUDID 2 MG INJECTION IV PRN (19:25)
[2019-08-06] MEDS: DILAUDID 1 MG/1ML PCA IV PRN (19:49)
[2019-08-06] MEDS: NORVASC 5 MG PO SCH (20:14)
[2019-08-06] MEDS: Pepcid 20 MG PO SCH ×2 (20:14→21:29)
[2019-08-06] MEDS: COREG 12.5 MG PO SCH ×2 (20:14→21:29)
[2019-08-06] MEDS: Cozaar 50 MG PO SCH (20:14)
[2019-08-06] MEDS: Paxil 20 MG PO SCH (20:14)
[2019-08-07] MEDS: D5W/0.45NS W/ 20mEq KCl 1000 ML 1,000 ML IV SCH ×2 (04:05→22:04)
[2019-08-07 05:07] LABS: Hemoglobin 11.5 gm/dl (12.0-16.0); Mean Corpuscular Hemoglobin 30.3 pg (26-32); Mean Corpuscular Hgb Concent. 31.9 g/dl (32-36); Mean Platelet Volume 11.2 fl (7.5-11.0); Platelet Count 142 K/mm3 (150-450); Red Blood Count 3.79 M/mm3 (4.1-5.4); Red Cell Distribution Width 14.1 % (11.5-14.0); White Blood Count 5.3 K/mm3 (4.0-10.5)
[2019-08-07 05:28] LABS: ALBUMIN 2.9 g/dL (3.5-5.0); ALKALINE PHOSPHATASE 49 U/L (38-126); ANION GAP 8.9 MEQ/L (5-15); BLOOD UREA NITROGEN 22 mg/dL (7-17); CHLORIDE 105 mmol/L (98-107); Calcium 7.5 mg/dL (8.4-10.2); Carbon Dioxide 27 mmol/L (22-30); Creatinine 1 0.77 mg/dL (0.52-1.04); Glucose 122 mg/dL (74-106); Potassium 3.4 mmol/L (3.5-5.1); SGOT/AST 21 U/L (14-36); SGPT/ALT 11 U/L (0-35); SODIUM 137 mmol/L (137-145); Total Protein 5.4 g/dL (6.3-8.2)
[2019-08-07] MEDS: FLAGYL 500 MG IVPB 500 MG/100 ML BAG IV SCH ×3 (06:06→22:04)
--- NOTE | 2019-08-07 09:05 | OP ---
SURGERY DATE/TIME: 08/06/2019 1510 PREOPERATIVE DIAGNOSES: 1) Prior history of partial colectomy by Dr. Dwain Perera in the past. 2) Prior history of small bowel resection for fish bone in the past. 3) Persistent partial small bowel obstruction failed conservative management. POSTOPERATIVE DIAGNOSES: 1) Prior history of partial colectomy by Dr. Dwain Perera in the past. 2) Prior history of small bowel resection for fish bone in the past. 3) Persistent partial small bowel obstruction failed conservative management. 4) Internal hernia, secondary adhesions. 5) Small bowel (jejunal) diverticulitis with question of some microperforation with peritoneal exudate. PROCEDURES: 1) Exploratory laparotomy, complete enterolysis with release of internal hernia. 2) Biopsy of enlarged small bowel mesenteric node. 3) Segmental small bowel resection of jejunal diverticulitis/diverticulosis with primary anastomosis. SURGEON: Dr. Jd Noe. ANESTHESIA: General. ESTIMATED BLOOD LOSS: Minimal. INDICATIONS: As noted above. Risks and benefits explained in detail and not limited to and consent obtained. DESCRIPTION OF PROCEDURE AND FINDINGS: The patient is taken to the operating room. General anesthesia induced. She was prepped and draped in usual sterile fashion. After official time out and no disagreement with planned procedure, a midline incision made through old scar tissue. She had several omental adhesions up to the midline this took some time to take down. Once these were taken down complete enterolysis was performed. She did have a band and internal hernia causing some of the obstruction but she also had the peritoneal gelatinous exudate that seemed to be consistent with possible jejunal diverticulitis possible microperforation. With these findings again adhesions had been lysed. It was felt that this segment of very large jejunal diverticulosis/diverticulitis should be resected given the exudate and question of microperforation of one of the diverticula. She had very lengthy amount of remaining small bowel 30 cm or so of this extensive large diverticulosis/diverticulitis with gelatinous exudate and question of microperforation. Once resected the more proximal jejunum that appeared to be minimal diverticulosis in the more distal jejunum but again appeared to be minimal diverticulosis if any at all. The segment was transected just distal to extensive diverticular segment and diverticulitis area transected with PRASANNA stapler. This mesentery taken down divided and ligated in a combination of clamps, Vicryl ties and LigaSure device. It should be noted there is a large small bowel mesenteric node this was carefully dissected out and sent for pathology and been controlled with 3-0 Vicryl suture ligature. The small bowel was taken just proximal to the largest diverticulosis/diverticulitis segment to an area of the jejunum that appeared to be minimal, if any, diverticula. This is transected with PRASANNA stapler. After first decompressing the barium in a side guerrero to avoid any contamination of the abdomen, this proximal part of the bowel was transfixed with PRASANNA stapler. [id number] anastomosis created with [id number] at the posterior level with interrupted 3-0 PDS. [id number] staple anastomosis created with the end stump closed with TA-stapler. The end stump staple line was over sewn for hemostasis with 3-0 PDS. Mesenteric defect closed with 3-0 PDS. Anastomosis widely patent, viable and tension free. The remainder of the small bowel was quite viable. No evidence of any ischemia. No evidence of any other significant diverticular inflammation areas of the small bowel itself. Copious amount of irrigation irrigating until clear. MIAH drain was placed in the left gutter lateral away from direct communication with anastomosis itself after copious amount of irrigation. The omentum was laid over the top of the anastomotic area and covering the small bowel in the midline isolating away from the abdominal wall. Another MIAH is placed down in the pelvis as she had some gelatinous exudate. Copious amount of irrigation had been irrigated clear. At this point closing with new, clean closing instruments and gloves were used. The fascia was closed with sequential 0 PDS, subcu irrigated out with copious amounts of sterile saline and the skin stapled. MIAH drain secured with PDS suture placed to bulb suction. Anesthesia is planning tap blocks as well as given sterile dressing and abdominal binder. The patient tolerated the procedure well. There were no immediate complications. Findings discussed with the family out in the waiting area.
[2019-08-07] MEDS: Levofloxacin 500MG/100ML D5W 500 MG/100 ML BAG IV SCH (09:56)
[2019-08-07] MEDS: Paxil 20 MG PO SCH (09:58)
[2019-08-07] MEDS: COREG 12.5 MG PO SCH ×2 (09:58→22:05)
[2019-08-07] MEDS: Cozaar 50 MG PO SCH (09:58)
[2019-08-07] MEDS: Pepcid 20 MG PO SCH ×2 (09:58→22:05)
[2019-08-07] MEDS: NORVASC 5 MG PO SCH (09:58)
--- NOTE | 2019-08-07 10:59 | PCM.NOTE ---
Date and Time: 08/07/19 1054 Subjective Assessment: Patient had surgery last night for her small bowel obstruction. She has been NPO since 08/03/19. She states the dilaudid traveling auditor is controlling her pain. She denies any other concerns at this time. - Review of Systems Constitutional: No Symptoms Respiratory: No Symptoms Cardiac: No Symptoms Abdominal/Gastrointestinal: Abdominal Pain Genitourinary Symptoms: No Symptoms Musculoskeletal: No Symptoms Objective Exam General Appearance: no apparent distress, other (on 2 L NC; NG tube in place) Neurologic Exam: alert, cooperative Skin Exam: normal color, warm, dry Wound Assessment: Skin/Wound Assessment Wound/Incision Assessment Start: 08/06/19 20: 09 Text: Status: Active Freq: Q6H Protocol: Document 08/07/19 08:00 AR (Rec: 08/07/19 09:31 AR [id number]) Wound/Incision Assessment Lower Abdomen Wound Assessment Shift Assessment Wound Type Incision Wound Stage Non Pressure Wound Drainage Amount Minimal Surrounding Tissue [place] Primary Dressing ISLAND DRESSING Comment MIDLINE INCSION, NO NEW DRAINAGE NOTED, 2 MIAH DRAINS BILATERAL ABDOMEN, ABDOMINAL BINDER IN PLACE Respiratory Exam: normal breath sounds, lungs clear, No crackles/rales, No rhonchi, No wheezing Cardiovascular Exam: regular rate/rhythm, normal heart sounds, No murmur, No friction rub, No gallop Gastrointestinal/Abdomen Exam: soft OBJECTIVE DATA Vital Signs: Vital Signs - 24 hr Temp Pulse Resp BP BP Pulse Ox 08/07/19 07:18 97.9 F 87 18 142/48 98 08/07/19 07:05 97 08/07/19 06:12 99 08/07/19 04:00 97.6 F 84 18 130/62 96 08/07/19 00:12 98 F 78 112/72 95 08/07/19 00:00 95 08/06/19 22:31 98 F 83 97/46 94 L 08/06/19 21:38 74 131/56 96 08/06/19 21:25 70 90/46 96 08/06/19 20:30 72 102/40 95 08/06/19 20:00 97.8 F 72 100/40 95 08/06/19 19:49 95 08/06/19 19:30 68 18 118/32 95 08/06/19 19:20 95 08/06/19 19:15 97.8 F 70 107/43 95 08/06/19 19:00 70 113/55 94 L 08/06/19 18:45 97.7 F 72 109/53 96 08/06/19 14:07 99 F 77 16 119/45 92 L 08/06/19 12:00 99 F 77 16 119/45 92 L Oxygen-Last 24 hours Oxygen Flowrate (L/min)-RT 92 Pain Assessment - Last Documented Pain Intensity 4 Pain Scale Used 0-10 Pain Scale Intake and Output: Intake & Output 08/05/19 08/06/19 08/07/19 08/08/19 06:59 06:59 06:59 06:59 Intake Total 3504 2302 1659 0 Output Total 2350 2050 1200 Balance 1154 252 459 0 Weight 79.9 kg 79.6 kg 82 kg Lab Results: Lab Results-Last 24 Hours 08/06/19 08/06/19 08/07/19 Range/Units 14:25 15:12 04:20 WBC 5.3 (4.0-10.5) K/mm3 RBC 3.79 L (4.1-5.4) M/mm3 Hgb 11.5 L (12.0-16.0) gm/dl Hct 36.0 (35-47) % MCV 95.0 (78-100) fl MCH 30.3 (26-32) pg MCHC 31.9 L (32-36) g/dl RDW 14.1 H (11.5-14.0) % Plt Count 142 L (150-450) K/mm3 MPV 11.2 H (7.5-11.0) fl Sodium (137-145) mmol/L Potassium (3.5-5.1) mmol/L Chloride (98-107) mmol/L Carbon Dioxide (22-30) mmol/L Anion Gap (5-15) MEQ/L BUN (7-17) mg/dL Creatinine (0.52-1.04) mg/dL Estimated GFR ML/MIN Glucose (74-106) mg/dL Calcium (8.4-10.2) mg/dL Magnesium (1.6-2.3) mg/dL Total Bilirubin (0.2-1.3) mg/dL AST (14-36) U/L ALT (0-35) U/L Alkaline Phosphatase (38-126) U/L Serum Total Protein (6.3-8.2) g/dL Albumin (3.5-5.0) g/dL Urine Color JIMMY (YELLOW) Urine Appearance CLEAR (CLEAR) Urine pH 6.0 (5-6) Ur Specific [place] 1.024 (1.005-1.025) Urine Protein 30 (Negative) Urine Ketones MODERATE (NEGATIVE) Urine Blood NEGATIVE (0-5) Jean/ul Urine Nitrite NEGATIVE (NEGATIVE) Urine Bilirubin NEGATIVE (NEGATIVE) Urine Urobilinogen NEGATIVE (0-1) mg/dL Ur Leukocyte Esterase TRACE (NEGATIVE) Urine WBC (Auto) 0-2 (0-5) /HPF Urine RBC (Auto) 6-10 (0-2) /HPF U Epithel Cells (Auto) NONE (FEW) /HPF Urine Bacteria (Auto) NONE (NEGATIVE) /HPF Urine Mucus (Auto) SLIGHT (NEGATIVE) /HPF Urine Glucose NEGATIVE (NEGATIVE) mg/dL ABO Group AB Rh Factor POSITIVE Antibody Screen NEGATIVE (NEGATIVE) 08/07/19 08/07/19 Range/Units 04:20 05:10 WBC (4.0-10.5) K/mm3 RBC (4.1-5.4) M/mm3 Hgb (12.0-16.0) gm/dl Hct (35-47) % MCV (78-100) fl MCH (26-32) pg MCHC (32-36) g/dl RDW (11.5-14.0) % Plt Count (150-450) K/mm3 MPV (7.5-11.0) fl Sodium 137 (137-145) mmol/L Potassium 3.4 L (3.5-5.1) mmol/L Chloride 105 (98-107) mmol/L Carbon Dioxide 27 (22-30) mmol/L Anion Gap 8.9 (5-15) MEQ/L BUN 22 H (7-17) mg/dL Creatinine 0.77 (0.52-1.04) mg/dL Estimated GFR > 60.0 ML/MIN Glucose 122 H (74-106) mg/dL Calcium 7.5 L (8.4-10.2) mg/dL Magnesium 1.8 (1.6-2.3) mg/dL Total Bilirubin 0.50 (0.2-1.3) mg/dL AST 21 (14-36) U/L ALT 11 (0-35) U/L Alkaline Phosphatase 49 (38-126) U/L Serum Total Protein 5.4 L (6.3-8.2) g/dL Albumin 2.9 L (3.5-5.0) g/dL Urine Color (YELLOW) Urine Appearance (CLEAR) Urine pH (5-6) Ur Specific [place] (1.005-1.025) Urine Protein (Negative) Urine Ketones (NEGATIVE) Urine Blood (0-5) Jean/ul Urine Nitrite (NEGATIVE) Urine Bilirubin (NEGATIVE) Urine Urobilinogen (0-1) mg/dL Ur Leukocyte Esterase (NEGATIVE) Urine WBC (Auto) (0-5) /HPF Urine RBC (Auto) (0-2) /HPF U Epithel Cells (Auto) (FEW) /HPF Urine Bacteria (Auto) (NEGATIVE) /HPF Urine Mucus (Auto) (NEGATIVE) /HPF Urine Glucose (NEGATIVE) mg/dL ABO Group Rh Factor Antibody Screen (NEGATIVE) Radiology Exams: Radiology Procedures Category Date Time Status SMALL BOWEL SERIES Urgent Exams 08/06/19 13:26 Completed Assessment/Plan (1) Small bowel obstruction Current Visit: Yes Status: Acute Assessment & Plan: s/p surgery per general surgeon. Still has NG tube into suction. She is on levofloxacin and metronidazole. Code(s): K56.69 - OTHER INTESTINAL OBSTRUCTION * DO NOT USE * (2) HTN (hypertension) Current Visit: Yes Status: Acute Qualifiers: Hypertension type: essential hypertension Qualified Code(s): I10 - Essential (primary) hypertension Assessment & Plan: Well controlled at this time. Code(s): I10 - ESSENTIAL (PRIMARY) HYPERTENSION (3) Poor nutrition Current Visit: Yes Status: Acute Assessment & Plan: Will plan to start PPN today. This is her 5th day of being NPO. Code(s): E63.9 - NUTRITIONAL DEFICIENCY, UNSPECIFIED
[2019-08-07] MEDS: ENOXAPARIN SODIUM SQ SCH (13:19)
[2019-08-07] MEDS: [UNRECOGNIZED DRUG - NUTRITION] IV SCH ×3 (14:48)
[2019-08-08] MEDS: FLAGYL 500 MG IVPB 500 MG/100 ML BAG IV SCH ×3 (05:05→22:01)
[2019-08-08 05:28] LABS: Hematocrit 32.1 % (35-47); Hemoglobin 10.1 gm/dl (12.0-16.0); Mean Cell Volume 96.1 fl (78-100); Mean Corpuscular Hemoglobin 30.2 pg (26-32); Mean Corpuscular Hgb Concent. 31.5 g/dl (32-36); Mean Platelet Volume 10.4 fl (7.5-11.0); Platelet Count 139 K/mm3 (150-450); Red Blood Count 3.34 M/mm3 (4.1-5.4); White Blood Count 5.9 K/mm3 (4.0-10.5)
[2019-08-08 05:46] LABS: ALBUMIN 2.7 g/dL (3.5-5.0); ALKALINE PHOSPHATASE 43 U/L (38-126); ANION GAP 8.1 MEQ/L (5-15); BLOOD UREA NITROGEN 19 mg/dL (7-17); CHLORIDE 105 mmol/L (98-107); Calcium 7.7 mg/dL (8.4-10.2); Carbon Dioxide 25 mmol/L (22-30); Creatinine 1 0.62 mg/dL (0.52-1.04); Glucose 149 mg/dL (74-106); Potassium 3.5 mmol/L (3.5-5.1); SGOT/AST 22 U/L (14-36); SGPT/ALT 13 U/L (0-35); SODIUM 135 mmol/L (137-145); Total Protein 5.2 g/dL (6.3-8.2)
[2019-08-08] MEDS: Cozaar 50 MG PO SCH (09:04)
[2019-08-08] MEDS: Paxil 20 MG PO SCH (09:04)
[2019-08-08] MEDS: NORVASC 5 MG PO SCH (09:04)
[2019-08-08] MEDS: COREG 12.5 MG PO SCH ×2 (09:04→21:58)
[2019-08-08] MEDS: Levofloxacin 500MG/100ML D5W 500 MG/100 ML BAG IV SCH (09:04)
[2019-08-08] MEDS: Pepcid 20 MG PO SCH ×2 (09:04→21:58)
[2019-08-08] MEDS ORDERED: CHLORASEPTIC SPRAY 180 ML PO PRN (11:10)
--- NOTE | 2019-08-08 11:18 | PCM.NOTE ---
Date and Time: 08/08/19 1114 Subjective Assessment: Patient reports she feels tired and has pain all over. Her nurse notes she was able to walk. She continues to have NG to low intermittent suction. She has started her PPN. - Review of Systems Constitutional: Fatigue, Other (generalized pain) Respiratory: No Symptoms Cardiac: No Symptoms Abdominal/Gastrointestinal: Abdominal Pain Genitourinary Symptoms: Other (joshi catheter) Objective Exam General Appearance: no apparent distress, other (NG tube in place, joshi catheter in place) Skin Exam: normal color, warm Wound Assessment: Skin/Wound Assessment Wound/Incision Assessment Start: 08/06/19 20: 09 Text: Status: Active Freq: Q6H Protocol: Document 08/07/19 20:00 AW (Rec: 08/07/19 23:06 AW [id number]) Wound/Incision Assessment Lower Abdomen Wound Assessment Shift Assessment Wound Type Incision Wound Stage Non Pressure Wound Drainage Amount None Surrounding Tissue [place] Primary Dressing ISLAND DRESSING Comment MIDLINE INCSION, NO NEW DRAINAGE NOTED, 2 MIAH DRAINS BILATERAL ABDOMEN, ABDOMINAL BINDER IN PLACE Wound/Incision Assessment Start: 08/07/19 23: 07 Text: Status: Active Freq: Q6H Protocol: Document 08/08/19 08:00 [email or web address] (Rec: 08/08/19 09:45 [email or web address] [id number]) Wound/Incision Assessment Lower Abdomen Wound Assessment Shift Assessment Wound Type Incision Wound Stage Non Pressure Wound Drainage Amount Minimal Drainage Description OLD Drainage Odor None/Absent Surrounding Tissue [place] Primary Dressing ISLAND DRESSING Comment DRESSING INTACT, OLD DRAINAGE NOTED, [address] AND DRESSINGS CHANGED, ABDOMINAL BINDER ON Wound Photo Photo Taken No Respiratory Exam: normal breath sounds, lungs clear Cardiovascular Exam: regular rate/rhythm, normal heart sounds, No murmur, No friction rub, No gallop Gastrointestinal/Abdomen Exam: other (abdominal binding in place; dressing in place; drains in place) OBJECTIVE DATA Vital Signs: Vital Signs - 24 hr Temp Pulse Resp BP Pulse Ox 08/08/19 08:00 98.4 F 72 16 128/60 94 L 08/08/19 07:54 92 L 08/08/19 07:29 97 08/08/19 04:00 97.7 F 76 18 129/62 95 08/08/19 00:00 98.1 F 78 17 124/60 93 L 08/07/19 23:05 95 08/07/19 20:00 97.9 F 72 18 129/49 94 L 08/07/19 16:00 97.9 F 95 H 18 125/70 94 L 08/07/19 12:00 98.3 F 95 H 18 122/47 93 L Pain Assessment - Last Documented Pain Intensity 9 Pain Scale Used 0-10 Pain Scale Intake and Output: Intake & Output 08/06/19 08/07/19 08/08/19 08/09/19 06:59 06:59 06:59 06:59 Intake Total 2302 1659 3545 Output Total 2050 1200 1145 25 Balance 172 973 2931 -25 Weight 79.6 kg 82 kg 81.2 kg Lab Results: Lab Results-Last 24 Hours 08/08/19 08/08/19 08/08/19 Range/Units 04:55 04:55 04:55 WBC 5.9 (4.0-10.5) K/mm3 RBC 3.34 L (4.1-5.4) M/mm3 Hgb 10.1 L (12.0-16.0) gm/dl Hct 32.1 L (35-47) % MCV 96.1 (78-100) fl MCH 30.2 (26-32) pg MCHC 31.5 L (32-36) g/dl RDW 14.0 (11.5-14.0) % Plt Count 139 L (150-450) K/mm3 MPV 10.4 (7.5-11.0) fl Sodium 135 L (137-145) mmol/L Potassium 3.5 (3.5-5.1) mmol/L Chloride 105 (98-107) mmol/L Carbon Dioxide 25 (22-30) mmol/L Anion Gap 8.1 (5-15) MEQ/L BUN 19 H (7-17) mg/dL Creatinine 0.62 (0.52-1.04) mg/dL Estimated GFR > 60.0 ML/MIN Glucose 149 H (74-106) mg/dL Calcium 7.7 L (8.4-10.2) mg/dL Magnesium 1.9 (1.6-2.3) mg/dL Total Bilirubin 0.30 (0.2-1.3) mg/dL AST 22 (14-36) U/L ALT 13 (0-35) U/L Alkaline Phosphatase 43 (38-126) U/L Serum Total Protein 5.2 L (6.3-8.2) g/dL Albumin 2.7 L (3.5-5.0) g/dL Radiology Exams: Radiology Procedures Category Date Time Status SMALL BOWEL SERIES Urgent Exams 08/06/19 13:26 Completed Multi-Disciplinary Progress Notes: Multi-Disciplinary Progress Notes 08/08/19 10:18 Case Management Note by Slime Lance NO CHANGE IN DC PLANS, WILL CONTINUE TO FOLLOW Initialized on 08/08/19 10:18 - END OF NOTE 08/08/19 09:49 Nutrition Note by Megan Emery Note PPN started today @ 70mls/hour to provide 1134 kcals. Note pt needs are 1600 kcals. Recommend to increase as pt tolerates. MS [email or web address] Initialized on 08/08/19 09:49 - END OF NOTE 08/07/19 14:15 Pharmacy Note by Stephane Crowe PPN DOSING STARTING PPN AT 70 ML/HR, DECRESING PRESENT IV FLUID BY SAME RATE. THIS WILL SUPPLY 1134 KCAL/24 HRS. LABS WILL BE DONE 08/07 Initialized on 08/07/19 14:15 - END OF NOTE Assessment/Plan (1) Small bowel obstruction Current Visit: Yes Status: Acute Assessment & Plan: s/p surgery on 08/06/19; Continue management per surgery. Code(s): K56.69 - OTHER INTESTINAL OBSTRUCTION * DO NOT USE * (2) HTN (hypertension) Current Visit: Yes Status: Acute Qualifiers: Hypertension type: essential hypertension Qualified Code(s): I10 - Essential (primary) hypertension Assessment & Plan: Currently well controlled. Code(s): I10 - ESSENTIAL (PRIMARY) HYPERTENSION (3) Poor nutrition Current Visit: Yes Status: Acute Assessment & Plan: Started PPN yesterday. Code(s): E63.9 - NUTRITIONAL DEFICIENCY, UNSPECIFIED (4) Diverticulitis small intestine Current Visit: Yes Status: Acute Assessment & Plan: s/p surgery on broad spectrum antibiotics. Code(s): K57.12 - DVTRCLI OF SM INT W/O PERFORATION OR ABSCESS W/O BLEEDING
[2019-08-08] MEDS: [UNRECOGNIZED DRUG - NUTRITION] IV SCH ×3 (14:23)
[2019-08-08] MEDS: ENOXAPARIN SODIUM SQ SCH (14:23)
[2019-08-09 05:22] LABS: Hematocrit 30.5 % (35-47); Hemoglobin 9.8 gm/dl (12.0-16.0); Mean Cell Volume 94.1 fl (78-100); Mean Corpuscular Hemoglobin 30.2 pg (26-32); Mean Corpuscular Hgb Concent. 32.1 g/dl (32-36); Mean Platelet Volume 10.8 fl (7.5-11.0); Platelet Count 149 K/mm3 (150-450); Red Blood Count 3.24 M/mm3 (4.1-5.4); Red Cell Distribution Width 13.9 % (11.5-14.0); White Blood Count 6.7 K/mm3 (4.0-10.5)
[2019-08-09 05:50] LABS: ALBUMIN 2.8 g/dL (3.5-5.0); ALKALINE PHOSPHATASE 45 U/L (38-126); BLOOD UREA NITROGEN 15 mg/dL (7-17); CHLORIDE 104 mmol/L (98-107); Calcium 8.2 mg/dL (8.4-10.2); Carbon Dioxide 24 mmol/L (22-30); Creatinine 1 0.54 mg/dL (0.52-1.04); Glucose 144 mg/dL (74-106); Potassium 3.4 mmol/L (3.5-5.1); SGOT/AST 19 U/L (14-36); SGPT/ALT 13 U/L (0-35); SODIUM 134 mmol/L (137-145); Total Protein 5.4 g/dL (6.3-8.2)
[2019-08-09] MEDS: FLAGYL 500 MG IVPB 500 MG/100 ML BAG IV SCH ×3 (06:31→22:00)
[2019-08-09] MEDS: Levofloxacin 500MG/100ML D5W 500 MG/100 ML BAG IV SCH (10:25)
[2019-08-09] MEDS: COREG 12.5 MG PO SCH ×2 (10:25→22:00)
[2019-08-09] MEDS: Cozaar 50 MG PO SCH (10:25)
[2019-08-09] MEDS: Paxil 20 MG PO SCH (10:25)
[2019-08-09] MEDS: Pepcid 20 MG PO SCH ×2 (10:25→22:01)
[2019-08-09] MEDS: NORVASC 5 MG PO SCH (10:25)
[2019-08-09 10:32] LABS: INR 1.24 (0.8-3.0); PROTIME 14.1 SECONDS (9.95-12.35)
[2019-08-09 10:35] LABS: PTT 28.2 SECONDS (25.3-37.0)
--- NOTE | 2019-08-09 12:29 | XRAY ---
Indication: Ultrasound guidance for PICC line placement. Initial sonographic imaging of the right upper extremity was performed for localization of patent veins. A patent basilic vein identified above the elbow. Ultrasound guidance was then used for PICC line insertion. Full PICC line insertion is reported separately.
--- NOTE | 2019-08-09 12:31 | XRAY ---
Indication: Difficult and poor venous access. Long-term IV access and therapy following surgery for small bowel obstruction. Informed consent obtained. Patient was placed on the fluoroscopic table in a supine position. Initial sonographic imaging of the right upper extremity was performed for localization of patent veins. The right upper extremity was then prepped and draped in sterile fashion. Tourniquet applied. 1% lidocaine plain used for local anesthesia. Using ultrasound guidance and a micropuncture needle, a basilic vein above the elbow was successfully percutaneously cannulized. A floppy tip 0.018 guidewire inserted. Tourniquet released. Needle was exchanged for a 5 [place] dilator peel-away sheath catheter. Ultimately a 5 [place] double-lumen PICC line was inserted over a longer 0.018 guidewire with the tip positioned in the distal SVC using fluoroscopic guidance. Guidewire removed. Both ports flushed with heparinized saline. Catheter was secured. Postoperative instructions and orders given. Patient discharged in good condition. Impression: Technically successful right upper extremity PICC line placement using ultrasound and fluoroscopic guidance. No immediate complications. Approximately 1 cc blood loss. Approximately 0.2 minute of fluoroscopy used. Catheter length is 39 cm.
[2019-08-09] MEDS: D5W/0.45NS W/ 20mEq KCl 1000 ML 1,000 ML IV SCH (12:42)
[2019-08-09] MEDS ORDERED: [UNRECOGNIZED DRUG - NUTRITION] IV SCH ×4 (14:00)
[2019-08-09] MEDS: ENOXAPARIN SODIUM SQ SCH (14:18)
[2019-08-09] MEDS: LYTES IV SCH ×4 (14:58)
[2019-08-09] MEDS: [UNRECOGNIZED DRUG - OTHER] IV SCH ×4 (14:58)
[2019-08-09] MEDS: DEX IV SCH ×4 (14:58)
--- NOTE | 2019-08-09 15:26 | PCM.NOTE ---
Date and Time: 08/09/19 1516 Subjective Assessment: Patient reports she is not passing gas yet; she continues to have ng tube per general surgery management. She had no iv access this AM and had a PICC line successfully placed. She denies any trouble breathing or any chest pain. - Review of Systems Constitutional: No Symptoms, Fatigue Eyes: No Symptoms Ears, Nose, & Throat: No Symptoms Respiratory: No Symptoms Cardiac: No Symptoms Abdominal/Gastrointestinal: Abdominal Pain Genitourinary Symptoms: No Symptoms Objective Exam General Appearance: no apparent distress, other (NG tube in place) Neurologic Exam: alert, cooperative Skin Exam: normal color, warm, dry Wound Assessment: Skin/Wound Assessment Wound/Incision Assessment Start: 08/06/19 20: 09 Text: Status: Active Freq: Q6H Protocol: Document 08/07/19 20:00 AW (Rec: 08/07/19 23:06 AW [id number]) Wound/Incision Assessment Lower Abdomen Wound Assessment Shift Assessment Wound Type Incision Wound Stage Non Pressure Wound Drainage Amount None Surrounding Tissue [place] Primary Dressing ISLAND DRESSING Comment MIDLINE INCSION, NO NEW DRAINAGE NOTED, 2 MIAH DRAINS BILATERAL ABDOMEN, ABDOMINAL BINDER IN PLACE Wound/Incision Assessment Start: 08/07/19 23: 07 Text: Status: Active Freq: Q6H Protocol: Document 08/09/19 14:00 PAULINE (Rec: 08/09/19 14:29 [email or web address] [id number]) Wound/Incision Assessment Lower Abdomen Wound Assessment Shift Assessment Wound Type Incision Wound Stage Non Pressure Wound Dressing Status Dry & Intact Drainage Amount None Primary Dressing ISLAND DRESSING Comment CDI, BINDER IN PLACE Wound Photo Photo Taken No Respiratory Exam: normal breath sounds, lungs clear, No crackles/rales, No rhonchi, No wheezing Cardiovascular Exam: regular rate/rhythm, normal heart sounds, No murmur, No friction rub, No gallop Gastrointestinal/Abdomen Exam: other (abdominal binding and dressings in place) Extremity Exam: other (no c/c/e) OBJECTIVE DATA Vital Signs: Vital Signs - 24 hr Temp Pulse Resp BP Pulse Ox 08/09/19 12:00 98.0 F 82 16 149/67 95 08/09/19 08:00 97.9 F 77 16 140/65 95 08/09/19 07:45 94 L 08/09/19 07:10 94 L 08/09/19 04:07 97.7 F 81 20 143/61 95 08/09/19 04:00 95 08/09/19 00:10 98.4 F 80 16 120/56 94 L 08/09/19 00:00 95 08/08/19 20:16 95 08/08/19 20:00 96 08/08/19 19:59 97.8 F 87 18 125/60 96 08/08/19 18:44 92 L 08/08/19 16:00 97.8 F 86 18 113/55 94 L Pain Assessment - Last Documented Pain Intensity 3 Pain Scale Used 0-10 Pain Scale Intake and Output: Intake & Output 08/07/19 08/08/19 08/09/19 08/10/19 06:59 06:59 06:59 06:59 Intake Total 1659 3545 4445 Output Total 1200 1145 2145 650 Balance 459 2400 2300 -650 Weight 82 kg 81.2 kg 78.8 kg Lab Results: Lab Results-Last 24 Hours 08/06/19 08/09/19 08/09/19 Range/Units 15:58 05:00 05:15 WBC 6.7 (4.0-10.5) K/mm3 RBC 3.24 L (4.1-5.4) M/mm3 Hgb 9.8 L (12.0-16.0) gm/dl Hct 30.5 L (35-47) % MCV 94.1 (78-100) fl MCH 30.2 (26-32) pg MCHC 32.1 (32-36) g/dl RDW 13.9 (11.5-14.0) % Plt Count 149 L (150-450) K/mm3 MPV 10.8 (7.5-11.0) fl PT 14.1 H (9.95-12.35) SECONDS INR 1.24 (0.8-3.0) APTT 28.2 (25.3-37.0) SECONDS Sodium (137-145) mmol/L Potassium (3.5-5.1) mmol/L Chloride (98-107) mmol/L Carbon Dioxide (22-30) mmol/L Anion Gap (5-15) MEQ/L BUN (7-17) mg/dL Creatinine (0.52-1.04) mg/dL Estimated GFR ML/MIN Glucose (74-106) mg/dL Calcium (8.4-10.2) mg/dL Total Bilirubin (0.2-1.3) mg/dL AST (14-36) U/L ALT (0-35) U/L Alkaline Phosphatase (38-126) U/L Serum Total Protein (6.3-8.2) g/dL Albumin (3.5-5.0) g/dL Surg PTH Diagnosis See Note H 08/09/19 Range/Units 05:15 WBC (4.0-10.5) K/mm3 RBC (4.1-5.4) M/mm3 Hgb (12.0-16.0) gm/dl Hct (35-47) % MCV (78-100) fl MCH (26-32) pg MCHC (32-36) g/dl RDW (11.5-14.0) % Plt Count (150-450) K/mm3 MPV (7.5-11.0) fl PT (9.95-12.35) SECONDS INR (0.8-3.0) APTT (25.3-37.0) SECONDS Sodium 134 L (137-145) mmol/L Potassium 3.4 L (3.5-5.1) mmol/L Chloride 104 (98-107) mmol/L Carbon Dioxide 24 (22-30) mmol/L Anion Gap 10.0 (5-15) MEQ/L BUN 15 (7-17) mg/dL Creatinine 0.54 (0.52-1.04) mg/dL Estimated GFR > 60.0 ML/MIN Glucose 144 H (74-106) mg/dL Calcium 8.2 L (8.4-10.2) mg/dL Total Bilirubin 0.30 (0.2-1.3) mg/dL AST 19 (14-36) U/L ALT 13 (0-35) U/L Alkaline Phosphatase 45 (38-126) U/L Serum Total Protein 5.4 L (6.3-8.2) g/dL Albumin 2.8 L (3.5-5.0) g/dL Surg PTH Diagnosis Radiology Exams: Radiology Procedures Category Date Time Status GUIDE FOR VASCULAR ACCESS [US] Routine Exams 08/09/19 11:03 Completed PICC LINE PLACEMENT Urgent Exams 08/09/19 12:13 Completed Multi-Disciplinary Progress Notes: Multi-Disciplinary Progress Notes 08/09/19 11:24 Case Management Note by Slime Lance PATIENT STILL ACUTELY ILL S/P SURGERY- WILL CONTINUE TO MONITOR AND REASSESS NEEDS CLOSER TO TIME OF DC Initialized on 08/09/19 11:24 - END OF NOTE 08/09/19 10:12 Nutrition Note by Megan Emery F/u Note: PPN con't no problems noted. Labs 08/08= Na 134, K+ 3.4, glu 144, alb 2.8, hgb 9.8 , hct 30.5 +fluid balance 2400mls; adm weight 79.9 kg; /= 78.8 kg. Will con' t to monitor and f/u prn. T.EULOGIO Emery Initialized on 08/09/19 10:12 - END OF NOTE Assessment/Plan (1) Small bowel obstruction Current Visit: Yes Status: Acute Assessment & Plan: s/p surgery; continued management per general surgeon. Awaiting return of bowel function. Continue PPN. Code(s): K56.69 - OTHER INTESTINAL OBSTRUCTION * DO NOT USE * (2) HTN (hypertension) Current Visit: Yes Status: Acute Qualifiers: Hypertension type: essential hypertension Qualified Code(s): I10 - Essential (primary) hypertension Assessment & Plan: Well controlled. Continue current medication. Code(s): I10 - ESSENTIAL (PRIMARY) HYPERTENSION (3) Poor nutrition Current Visit: Yes Status: Acute Assessment & Plan: Started PPN. Code(s): E63.9 - NUTRITIONAL DEFICIENCY, UNSPECIFIED (4) Diverticulitis small intestine Current Visit: Yes Status: Acute Assessment & Plan: Continue IV antibiotics. Code(s): K57.12 - DVTRCLI OF SM INT W/O PERFORATION OR ABSCESS W/O BLEEDING
[2019-08-10] MEDS ORDERED: PHARMACY DOSING REQUEST MC ONE (05:18)
[2019-08-10 05:50] LABS: Hematocrit 27.9 % (35-47); Mean Cell Volume 94.6 fl (78-100); Mean Corpuscular Hemoglobin 30.5 pg (26-32); Mean Corpuscular Hgb Concent. 32.3 g/dl (32-36); Mean Platelet Volume 10.4 fl (7.5-11.0); Platelet Count 149 K/mm3 (150-450); Red Blood Count 2.95 M/mm3 (4.1-5.4); White Blood Count 5.7 K/mm3 (4.0-10.5)
[2019-08-10 06:19] LABS: ALBUMIN 2.5 g/dL (3.5-5.0); ALKALINE PHOSPHATASE 39 U/L (38-126); ANION GAP 10.8 MEQ/L (5-15); BLOOD UREA NITROGEN 14 mg/dL (7-17); CHLORIDE 105 mmol/L (98-107); Carbon Dioxide 22 mmol/L (22-30); Creatinine 1 0.51 mg/dL (0.52-1.04); Glucose 307 mg/dL (74-106); Potassium 4.5 mmol/L (3.5-5.1); SGOT/AST 20 U/L (14-36); SGPT/ALT 13 U/L (0-35); SODIUM 133 mmol/L (137-145); Total Protein 5.1 g/dL (6.3-8.2)
[2019-08-10] MEDS: FLAGYL 500 MG IVPB 500 MG/100 ML BAG IV SCH ×3 (06:26→21:19)
[2019-08-10] MEDS: Paxil 20 MG PO SCH (09:37)
[2019-08-10] MEDS: Pepcid 20 MG PO SCH ×2 (09:39→21:18)
[2019-08-10] MEDS: COREG 12.5 MG PO SCH ×2 (09:39→21:19)
[2019-08-10] MEDS: Cozaar 50 MG PO SCH (09:40)
[2019-08-10] MEDS: Levofloxacin 500MG/100ML D5W 500 MG/100 ML BAG IV SCH (09:40)
[2019-08-10] MEDS: NORVASC 5 MG PO SCH (09:40)
[2019-08-10] MEDS ORDERED: HUMALOG SQ PRN (09:54)
--- NOTE | 2019-08-10 10:25 | PCM.NOTE ---
Date and Time: 08/10/19 1021 Subjective Assessment: Patient reports she still is not passing gas and is frustrated with this and with still having her NG tube in. Nursing reports general surgeons are checking on her daily. Her picc line was successfully placed yesterday and working well. Pharmacist reports they did increase calories in her hyperal but he is not sure the exact amount. Left message for Amelia Emery forensic engineer, to please work with Stephane pharmacist, on maximizing calories for patient. - Review of Systems Constitutional: Fatigue Respiratory: No Symptoms Cardiac: No Symptoms Abdominal/Gastrointestinal: Abdominal Pain, Nausea Genitourinary Symptoms: No Symptoms Musculoskeletal: No Symptoms Objective Exam General Appearance: no apparent distress, other (NG tube in place; sitting up in bed; looks mildly uncomfortable) Neurologic Exam: alert, cooperative Skin Exam: normal color, warm, dry Wound Assessment: Skin/Wound Assessment Wound/Incision Assessment Start: 08/06/19 20: 09 Text: Status: Active Freq: Q6H Protocol: Document 08/07/19 20:00 AW (Rec: 08/07/19 23:06 AW [id number]) Wound/Incision Assessment Lower Abdomen Wound Assessment Shift Assessment Wound Type Incision Wound Stage Non Pressure Wound Drainage Amount None Surrounding Tissue [place] Primary Dressing ISLAND DRESSING Comment MIDLINE INCSION, NO NEW DRAINAGE NOTED, 2 MIAH DRAINS BILATERAL ABDOMEN, ABDOMINAL BINDER IN PLACE Wound/Incision Assessment Start: 08/07/19 23: 07 Text: Status: Active Freq: Q6H Protocol: Document 08/10/19 02:00 MG (Rec: 08/10/19 04:52 MG [id number]) Wound/Incision Assessment Lower Abdomen Wound Assessment Shift Assessment Wound Type Incision Wound Stage Non Pressure Wound Dressing Status Drainage circled Drainage Amount Moderate Drainage Description Serous Drainage Odor None/Absent Primary Dressing ISLAND DRESSING Comment [place] dressing covering midline incision. Moderate amount of shadowing from serous drainage noted. Shadowing circled. Right and left MIAH drains in place and draining serosanguinous drainage. Abdominal binder readjusted for comfort. Respiratory Exam: normal breath sounds, lungs clear, No crackles/rales, No rhonchi, No wheezing Cardiovascular Exam: regular rate/rhythm, normal heart sounds, No murmur, No friction rub, No gallop Gastrointestinal/Abdomen Exam: other (abdominal binder in place) OBJECTIVE DATA Vital Signs: Vital Signs - 24 hr Temp Pulse Resp BP Pulse Ox 06/05/20 08:00 97.7 F 67 18 131/61 97 08/10/19 07:50 96 08/10/19 04:00 97.9 F 75 18 127/60 96 08/10/19 00:00 98.2 F 78 17 125/57 96 08/09/19 22:36 95 08/09/19 21:03 95 08/09/19 19:20 98.3 F 77 16 130/59 96 08/09/19 18:36 93 L 08/09/19 16:00 97.9 F 83 16 137/57 95 08/09/19 12:00 98.0 F 82 16 149/67 95 Pain Assessment - Last Documented Pain Intensity 4 Pain Scale Used 0-10 Pain Scale Intake and Output: Intake & Output 08/08/19 08/09/19 08/10/19 08/11/19 06:59 06:59 06:59 06:59 Intake Total 3545 4445 1942 Output Total 1145 2145 2115 Balance 2400 2300 -173 Weight 81.2 kg 78.8 kg 83 kg Lab Results: Lab Results-Last 24 Hours 08/06/19 08/09/19 08/10/19 Range/Units 15:58 05:00 05:00 WBC 5.7 (4.0-10.5) K/mm3 RBC 2.95 L (4.1-5.4) M/mm3 Hgb 9.0 L (12.0-16.0) gm/dl Hct 27.9 L (35-47) % MCV 94.6 (78-100) fl MCH 30.5 (26-32) pg MCHC 32.3 (32-36) g/dl RDW 14.0 (11.5-14.0) % Plt Count 149 L (150-450) K/mm3 MPV 10.4 (7.5-11.0) fl PT 14.1 H (9.95-12.35) SECONDS INR 1.24 (0.8-3.0) APTT 28.2 (25.3-37.0) SECONDS Sodium (137-145) mmol/L Potassium (3.5-5.1) mmol/L Chloride (98-107) mmol/L Carbon Dioxide (22-30) mmol/L Anion Gap (5-15) MEQ/L BUN (7-17) mg/dL Creatinine (0.52-1.04) mg/dL Estimated GFR ML/MIN Glucose (74-106) mg/dL Calcium (8.4-10.2) mg/dL Total Bilirubin (0.2-1.3) mg/dL AST (14-36) U/L ALT (0-35) U/L Alkaline Phosphatase (38-126) U/L Serum Total Protein (6.3-8.2) g/dL Albumin (3.5-5.0) g/dL Surg PTH Diagnosis See Note H 08/10/19 Range/Units 05:02 WBC (4.0-10.5) K/mm3 RBC (4.1-5.4) M/mm3 Hgb (12.0-16.0) gm/dl Hct (35-47) % MCV (78-100) fl MCH (26-32) pg MCHC (32-36) g/dl RDW (11.5-14.0) % Plt Count (150-450) K/mm3 MPV (7.5-11.0) fl PT (9.95-12.35) SECONDS INR (0.8-3.0) APTT (25.3-37.0) SECONDS Sodium 133 L (137-145) mmol/L Potassium 4.5 D (3.5-5.1) mmol/L Chloride 105 (98-107) mmol/L Carbon Dioxide 22 (22-30) mmol/L Anion Gap 10.8 (5-15) MEQ/L BUN 14 (7-17) mg/dL Creatinine 0.51 L (0.52-1.04) mg/dL Estimated GFR > 60.0 ML/MIN Glucose 307 H (74-106) mg/dL Calcium 8.0 L (8.4-10.2) mg/dL Total Bilirubin 0.30 (0.2-1.3) mg/dL AST 20 (14-36) U/L ALT 13 (0-35) U/L Alkaline Phosphatase 39 (38-126) U/L Serum Total Protein 5.1 L (6.3-8.2) g/dL Albumin 2.5 L (3.5-5.0) g/dL Surg PTH Diagnosis Radiology Exams: Radiology Procedures Category Date Time Status GUIDE FOR VASCULAR ACCESS [US] Routine Exams 08/09/19 11:03 Completed PICC LINE PLACEMENT Urgent Exams 08/09/19 12:13 Completed Multi-Disciplinary Progress Notes: Multi-Disciplinary Progress Notes 08/09/19 11:24 Case Management Note by Slime Lance PATIENT STILL ACUTELY ILL S/P SURGERY- WILL CONTINUE TO MONITOR AND REASSESS NEEDS CLOSER TO TIME OF DC Initialized on 08/09/19 11:24 - END OF NOTE Assessment/Plan (1) Small bowel obstruction Current Visit: Yes Status: Acute Assessment & Plan: Management per general surgeons. Code(s): K56.69 - OTHER INTESTINAL OBSTRUCTION * DO NOT USE * (2) HTN (hypertension) Current Visit: Yes Status: Acute Qualifiers: Hypertension type: essential hypertension Qualified Code(s): I10 - Essential (primary) hypertension Code(s): I10 - ESSENTIAL (PRIMARY) HYPERTENSION (3) Poor nutrition Current Visit: Yes Status: Acute Assessment & Plan: well controlled. Code(s): E63.9 - NUTRITIONAL DEFICIENCY, UNSPECIFIED (4) Diverticulitis small intestine Current Visit: Yes Status: Acute Assessment & Plan: On IV antibiotics. Code(s): K57.12 - DVTRCLI OF SM INT W/O PERFORATION OR ABSCESS W/O BLEEDING
[2019-08-10] MEDS: Sodium Chloride 0.9% 1000 ML 1,000 ML IV SCH (11:25)
[2019-08-10] MEDS: ENOXAPARIN SODIUM SQ SCH (13:46)
[2019-08-10] MEDS: DEX IV SCH ×4 (14:33)
[2019-08-10] MEDS: LYTES IV SCH ×4 (14:33)
[2019-08-10] MEDS: [UNRECOGNIZED DRUG - OTHER] IV SCH ×4 (14:33)
[2019-08-10] MEDS: DILAUDID 1 MG/1ML PCA IV PRN (20:05)
[2019-08-11] MEDS: FLAGYL 500 MG IVPB 500 MG/100 ML BAG IV SCH ×3 (06:01→22:03)
[2019-08-11 06:54] LABS: ALKALINE PHOSPHATASE 25 U/L (38-126); ANION GAP 16.8 MEQ/L (5-15); BLOOD UREA NITROGEN 11 mg/dL (7-17); CHLORIDE 99 mmol/L (98-107); Calcium 7.8 mg/dL (8.4-10.2); Carbon Dioxide 17 mmol/L (22-30); Creatinine 1 0.57 mg/dL (0.52-1.04); SGOT/AST 25 U/L (14-36); SGPT/ALT 12 U/L (0-35); SODIUM 125 mmol/L (137-145); Total Protein 3.7 g/dL (6.3-8.2)
[2019-08-11 07:27] LABS: Glucose 1125 mg/dL (74-106)
[2019-08-11 07:28] LABS: Potassium 7.7 mmol/L (3.5-5.1)
[2019-08-11 08:31] LABS: Hematocrit 32.1 % (35-47); Hemoglobin 10.4 gm/dl (12.0-16.0); Mean Corpuscular Hemoglobin 30.1 pg (26-32); Mean Corpuscular Hgb Concent. 32.4 g/dl (32-36); Mean Platelet Volume 10.4 fl (7.5-11.0); Platelet Count 185 K/mm3 (150-450); Red Blood Count 3.45 M/mm3 (4.1-5.4); Red Cell Distribution Width 14.3 % (11.5-14.0); White Blood Count 6.2 K/mm3 (4.0-10.5)
[2019-08-11 09:18] LABS: ALBUMIN 2.9 g/dL (3.5-5.0); ALKALINE PHOSPHATASE 46 U/L (38-126); BLOOD UREA NITROGEN 12 mg/dL (7-17); CHLORIDE 109 mmol/L (98-107); Calcium 8.5 mg/dL (8.4-10.2); Carbon Dioxide 19 mmol/L (22-30); Creatinine 1 0.45 mg/dL (0.52-1.04); Glucose 130 mg/dL (74-106); SGOT/AST 29 U/L (14-36); SGPT/ALT 18 U/L (0-35); SODIUM 137 mmol/L (137-145); Total Protein 5.6 g/dL (6.3-8.2)
[2019-08-11 09:25] LABS: Potassium 4.1 mmol/L (3.5-5.1)
[2019-08-11] MEDS: Zofran 4 MG/2 ML VIAL IV PRN (09:34)
[2019-08-11] MEDS: Pepcid 20 MG PO SCH ×2 (09:39→22:03)
[2019-08-11] MEDS: Paxil 20 MG PO SCH (09:39)
[2019-08-11] MEDS: NORVASC 5 MG PO SCH (09:41)
[2019-08-11] MEDS: COREG 12.5 MG PO SCH ×2 (09:41→22:03)
[2019-08-11] MEDS: Cozaar 50 MG PO SCH (09:41)
[2019-08-11] MEDS: Levofloxacin 500MG/100ML D5W 500 MG/100 ML BAG IV SCH (09:41)
--- NOTE | 2019-08-11 10:53 | PCM.NOTE ---
Date and Time: 08/11/19 1048 Subjective Assessment: Patient has been up walking in the [place]. She still has not passed any gas. She is eager to have the NG tube out when her bowel function improves. She denies any shortness of breath or chest pain. - Review of Systems Constitutional: Weakness Respiratory: No Symptoms Cardiac: No Symptoms Abdominal/Gastrointestinal: Abdominal Pain, Other (pain medication helps) Genitourinary Symptoms: No Symptoms Objective Exam General Appearance: no apparent distress, other (NG tube in place) Neurologic Exam: alert, cooperative, normal mood/affect Skin Exam: normal color, warm, dry, No rash Wound Assessment: Skin/Wound Assessment Wound/Incision Assessment Start: 08/06/19 20: 09 Text: Status: Active Freq: Q6H Protocol: Document 08/07/19 20:00 AW (Rec: 08/07/19 23:06 AW [id number]) Wound/Incision Assessment Lower Abdomen Wound Assessment Shift Assessment Wound Type Incision Wound Stage Non Pressure Wound Drainage Amount None Surrounding Tissue [place] Primary Dressing ISLAND DRESSING Comment MIDLINE INCSION, NO NEW DRAINAGE NOTED, 2 MIAH DRAINS BILATERAL ABDOMEN, ABDOMINAL BINDER IN PLACE Wound/Incision Assessment Start: 08/07/19 23: 07 Text: Status: Active Freq: Q6H Protocol: Document 08/11/19 01:59 MG (Rec: 08/11/19 02:00 MG [id number]) Wound/Incision Assessment Lower Abdomen Wound Assessment Shift Assessment Wound Type Incision Wound Stage Non Pressure Wound Dressing Status Drainage circled Drainage Amount Minimal Drainage Description Serous Drainage Odor None/Absent Primary Dressing ISLAND DRESSING Comment [place] dressing covering midline incision. Small amount of shadowing from serous drainage noted. Shadowing circled. Right and left MIAH drains in place and draining serosanguinous drainage. Right MIAH dressing CDI, Scant amount of serrous drainage noted on left dressing. Abdominal binder in place. No change noted. Respiratory Exam: normal breath sounds, lungs clear, No crackles/rales, No rhonchi, No wheezing Cardiovascular Exam: regular rate/rhythm, normal heart sounds, No murmur, No friction rub, No gallop Gastrointestinal/Abdomen Exam: other (abdoinal binder in place) Extremity Exam: normal inspection OBJECTIVE DATA Vital Signs: Vital Signs - 24 hr Temp Pulse Resp BP Pulse Ox 08/11/19 08:00 98.7 F 83 18 129/60 98 08/11/19 07:45 95 08/11/19 06:28 97 08/11/19 04:32 98.7 F 83 17 155/67 97 08/11/19 02:36 96 08/10/19 23:46 98.3 F 89 20 132/59 96 08/10/19 22:36 96 08/10/19 19:49 98.3 F 82 18 140/63 97 08/10/19 19:18 97 08/10/19 18:36 94 L 08/10/19 16:00 97.6 F 74 22 157/70 98 08/10/19 14:36 95 08/10/19 12:00 98.3 F 94 H 20 147/64 92 L 08/10/19 11:00 96 Pain Assessment - Last Documented Pain Intensity 2 Pain Scale Used 0-10 Pain Scale Intake and Output: Intake & Output 08/09/19 08/10/19 08/11/19 08/12/19 06:59 06:59 06:59 06:59 Intake Total 4445 1942 2986 0 Output Total 2145 2115 958 200 Balance 2300 -173 2028 -200 Weight 78.8 kg 83 kg 83.1 kg Lab Results: Accuchecks Date 08/10/19 Date 08/10/19 Time 18:00 Time 12:00 Accucheck Value: 146 Accucheck Value: 156 Accucheck Value: 149 Accucheck Value: 151 Lab Results-Last 24 Hours 08/10/19 08/11/19 08/11/19 Range/Units 06:30 05:30 05:30 WBC 6.2 (4.0-10.5) K/mm3 RBC 3.45 L (4.1-5.4) M/mm3 Hgb 10.4 L (12.0-16.0) gm/dl Hct 32.1 L (35-47) % MCV 93.0 (78-100) fl MCH 30.1 (26-32) pg MCHC 32.4 (32-36) g/dl RDW 14.3 H (11.5-14.0) % Plt Count 185 (150-450) K/mm3 MPV 10.4 (7.5-11.0) fl Sodium 125 L D (137-145) mmol/L Potassium 7.7 H* D (3.5-5.1) mmol/L Chloride 99 (98-107) mmol/L Carbon Dioxide 17 L (22-30) mmol/L Anion Gap 16.8 H (5-15) MEQ/L BUN 11 (7-17) mg/dL Creatinine 0.57 (0.52-1.04) mg/dL Estimated GFR > 60.0 ML/MIN Glucose 1125 H* (74-106) mg/dL Hemoglobin A1c 5.45 (4.5-6.0) % Calcium 7.8 L (8.4-10.2) mg/dL Magnesium (1.6-2.3) mg/dL Total Bilirubin 0.20 (0.2-1.3) mg/dL AST 25 (14-36) U/L ALT 12 (0-35) U/L Alkaline Phosphatase 25 L (38-126) U/L Serum Total Protein 3.7 L (6.3-8.2) g/dL Albumin 2.0 L (3.5-5.0) g/dL 08/11/19 08/11/19 Range/Units 05:30 08:30 WBC (4.0-10.5) K/mm3 RBC (4.1-5.4) M/mm3 Hgb (12.0-16.0) gm/dl Hct (35-47) % MCV (78-100) fl MCH (26-32) pg MCHC (32-36) g/dl RDW (11.5-14.0) % Plt Count (150-450) K/mm3 MPV (7.5-11.0) fl Sodium 137 D (137-145) mmol/L Potassium 4.1 D (3.5-5.1) mmol/L Chloride 109 H (98-107) mmol/L Carbon Dioxide 19 L (22-30) mmol/L Anion Gap 13.0 (5-15) MEQ/L BUN 12 (7-17) mg/dL Creatinine 0.45 L (0.52-1.04) mg/dL Estimated GFR > 60.0 ML/MIN Glucose 130 H (74-106) mg/dL Hemoglobin A1c (4.5-6.0) % Calcium 8.5 (8.4-10.2) mg/dL Magnesium 3.1 H 2.0 (1.6-2.3) mg/dL Total Bilirubin 0.30 (0.2-1.3) mg/dL AST 29 (14-36) U/L ALT 18 (0-35) U/L Alkaline Phosphatase 46 (38-126) U/L Serum Total Protein 5.6 L (6.3-8.2) g/dL Albumin 2.9 L (3.5-5.0) g/dL Radiology Exams: Radiology Procedures Category Date Time Status GUIDE FOR VASCULAR ACCESS [US] Routine Exams 08/09/19 11:03 Completed PICC LINE PLACEMENT Urgent Exams 08/09/19 12:13 Completed Multi-Disciplinary Progress Notes: Multi-Disciplinary Progress Notes 08/10/19 14:31 Pharmacy Note by Stephane Crowe PHARMACY TPN DOSING: KABIVEN TRIPLE MIX CENTRAL LINE FORMULA RUNNING AT 80ML/MG=8825 KCAL/24 HR ON SLIDING SCALE INSULIN FOR INCREASED BLOOD SUGAR Initialized on 08/10/19 14:31 - END OF NOTE 08/10/19 10:48 Case Management Note by Slime Lance NO CHANGE IN DC PLANS AT THIS TIME, WILL CONTINUE TO MONITOR Initialized on 08/10/19 10:48 - END OF NOTE Assessment/Plan (1) Small bowel obstruction Current Visit: Yes Status: Acute Assessment & Plan: Continue management per general surgeons. Code(s): K56.69 - OTHER INTESTINAL OBSTRUCTION * DO NOT USE * (2) HTN (hypertension) Current Visit: Yes Status: Acute Qualifiers: Hypertension type: essential hypertension Qualified Code(s): I10 - Essential (primary) hypertension Assessment & Plan: Well controlled. Code(s): I10 - ESSENTIAL (PRIMARY) HYPERTENSION (3) Poor nutrition Current Visit: Yes Status: Acute Assessment & Plan: On PPN Code(s): E63.9 - NUTRITIONAL DEFICIENCY, UNSPECIFIED (4) Diverticulitis small intestine Current Visit: Yes Status: Acute Assessment & Plan: Continue levofloxacin and metronidazole started on 08/06/[address] Donis. Code(s): K57.12 - DVTRCLI OF SM INT W/O PERFORATION OR ABSCESS W/O BLEEDING
[2019-08-11 12:07] LABS: BAND 2 % (0.0-2.0); Eosinophil 3 % (0.00-3.0); Lymphocytes 13 % (24-44); Monocyte 17 % (0.0-12.0); Neutrophils 65 % (36.0-66.0); Platelet Estimate NORMAL (NORMAL); Total Cells Counted 100
[2019-08-11] MEDS: [UNRECOGNIZED DRUG - OTHER] IV SCH ×4 (14:32)
[2019-08-11] MEDS: LYTES IV SCH ×4 (14:32)
[2019-08-11] MEDS: DEX IV SCH ×4 (14:32)
[2019-08-11] MEDS: ENOXAPARIN SODIUM SQ SCH (14:33)
[2019-08-12] MEDS: FLAGYL 500 MG IVPB 500 MG/100 ML BAG IV SCH ×3 (06:55→21:04)
--- NOTE | 2019-08-12 07:58 | XRAY ---
Indication: NG tube placement. Comparison: May 06, 2013. Portable chest demonstrates new NG tube tip in stomach with small amount of gastric barium. Also new right arm PICC line with tip in the SVC. Lungs underinflated with minimal bibasilar atelectasis. Remaining heart, lungs, and bony thorax unremarkable. Comment: Preliminary interpretation was made by [facility]. No critical discrepancy.
[2019-08-12] MEDS: DILAUDID 1 MG/1ML PCA IV PRN (08:29)
[2019-08-12] MEDS: Pepcid 20 MG PO SCH ×2 (08:49→21:04)
[2019-08-12] MEDS: Paxil 20 MG PO SCH (08:49)
[2019-08-12] MEDS: Levofloxacin 500MG/100ML D5W 500 MG/100 ML BAG IV SCH (08:51)
[2019-08-12] MEDS: COREG 12.5 MG PO SCH ×2 (08:51→21:04)
[2019-08-12] MEDS: NORVASC 5 MG PO SCH (08:51)
[2019-08-12] MEDS: Cozaar 50 MG PO SCH (08:51)
[2019-08-12] MEDS ORDERED: Lasix 20 MG/2 ML IV ONE (11:30)
[2019-08-12] MEDS: Sodium Chloride 0.9% 1000 ML 1,000 ML IV SCH (11:31)
--- NOTE | 2019-08-12 12:15 | PCM.NOTE ---
Date and Time: 08/12/19 1209 Subjective Assessment: Patient reports she still has not passed gas; her NG tube felt like it was high in her esophagus earlier today and was advanced by nursing. She has noticed her legs have seemed more swollen and bigger. She reports history of a stent to her heart and congestive heart failure when she had a bowel obstruction in 2012 or 2013. She reports she is trying to be patient. She walked in the hallway today. - Review of Systems Constitutional: Fatigue Respiratory: No Symptoms Cardiac: No Symptoms Abdominal/Gastrointestinal: Abdominal Pain Genitourinary Symptoms: No Symptoms Musculoskeletal: Other (leg swelling) Objective Exam General Appearance: no apparent distress, alert, other (NG tube in place) Neurologic Exam: alert, cooperative, normal mood/affect Wound Assessment: Skin/Wound Assessment Wound/Incision Assessment Start: 08/06/19 20: 09 Text: Status: Active Freq: Q6H Protocol: Document 08/07/19 20:00 AW (Rec: 08/07/19 23:06 AW [id number]) Wound/Incision Assessment Lower Abdomen Wound Assessment Shift Assessment Wound Type Incision Wound Stage Non Pressure Wound Drainage Amount None Surrounding Tissue [place] Primary Dressing ISLAND DRESSING Comment MIDLINE INCSION, NO NEW DRAINAGE NOTED, 2 MIAH DRAINS BILATERAL ABDOMEN, ABDOMINAL BINDER IN PLACE Wound/Incision Assessment Start: 08/07/19 23: 07 Text: Status: Active Freq: Q6H Protocol: Document 08/12/19 09:00 JW (Rec: 08/12/19 10:27 JW [id number]) Wound/Incision Assessment Lower Abdomen Wound Assessment Shift Assessment Wound Type Incision Wound Stage Non Pressure Wound Dressing Status Drainage circled Drainage Amount Minimal Drainage Description Serous Drainage Odor None/Absent Primary Dressing ISLAND DRESSING Comment [place] dressing covering midline incision. Small amount of shadowing from serous drainage noted, circled by previous nurse. No change noted from prevously circled drainage. Right and left MIAH drains in place and draining serosanguinous drainag. Abdominal binder for comfort. Wound Photo Photo Taken No Cardiovascular Exam: regular rate/rhythm, No murmur, No friction rub, No gallop Gastrointestinal/Abdomen Exam: other (abdominal binder in place) Extremity Exam: other (+2 edema to mid shins bilat) OBJECTIVE DATA Vital Signs: Vital Signs - 24 hr Temp Pulse Resp BP Pulse Ox 08/12/19 10:40 96 08/12/19 08:00 98.1 F 84 20 139/62 96 08/12/19 07:00 94 L 08/12/19 03:20 98.3 F 81 20 133/62 95 08/12/19 00:07 98.9 F 82 17 112/56 96 08/11/19 22:36 96 08/11/19 20:29 94 L 08/11/19 20:16 98.4 F 87 18 146/63 95 08/11/19 16:00 97.7 F 79 18 132/61 97 08/11/19 14:36 97 Pain Assessment - Last Documented Pain Intensity 2 Pain Scale Used 0-10 Pain Scale Intake and Output: Intake & Output 08/10/19 08/11/19 08/12/19 08/13/19 06:59 06:59 06:59 06:59 Intake Total 1942 2986 2670 Output Total 2115 958 800 340 Balance -173 8 1870 -340 Weight 83 kg 83.1 kg 83.1 kg Lab Results: Accuchecks Date 08/12/19 Date 08/11/19 Time 06:00 Time 18:09 Accucheck Value: 111 Accucheck Value: 139 Radiology Exams: Radiology Procedures Category Date Time Status CHEST 1 VIEW (PORTABLE) Stat Exams 08/12/19 06:40 Completed Assessment/Plan (1) Small bowel obstruction Current Visit: Yes Status: Acute Assessment & Plan: Continue management per general surgeons. s/p surgery on 08/08/19. Code(s): K56.69 - OTHER INTESTINAL OBSTRUCTION * DO NOT USE * (2) HTN (hypertension) Current Visit: Yes Status: Acute Qualifiers: Hypertension type: essential hypertension Qualified Code(s): I10 - Essential (primary) hypertension Assessment & Plan: Currently well controlled. Code(s): I10 - ESSENTIAL (PRIMARY) HYPERTENSION (3) Poor nutrition Current Visit: Yes Status: Acute Assessment & Plan: Continue TPN. I have asked tube filler and pharmacy to work together on this to maximize her caloric intake. Code(s): E63.9 - NUTRITIONAL DEFICIENCY, UNSPECIFIED (4) Diverticulitis small intestine Current Visit: Yes Status: Acute Assessment & Plan: She is on broad spectrum antibiotics per general surgeons. Code(s): K57.12 - DVTRCLI OF SM INT W/O PERFORATION OR ABSCESS W/O BLEEDING (5) Peripheral edema Current Visit: Yes Status: Acute Assessment & Plan: Will give one dose of IV lasix today. Code(s): R60.9 - EDEMA, UNSPECIFIED
[2019-08-12] MEDS: ENOXAPARIN SODIUM SQ SCH (14:05)
[2019-08-12] MEDS: LYTES IV SCH ×4 (15:10)
[2019-08-12] MEDS: DEX IV SCH ×4 (15:10)
[2019-08-12] MEDS: [UNRECOGNIZED DRUG - OTHER] IV SCH ×4 (15:10)
[2019-08-13 04:56] LABS: Hematocrit 27.7 % (35-47); Hemoglobin 8.8 gm/dl (12.0-16.0); Mean Cell Volume 93.3 fl (78-100); Mean Corpuscular Hemoglobin 29.6 pg (26-32); Mean Corpuscular Hgb Concent. 31.8 g/dl (32-36); Mean Platelet Volume 10.3 fl (7.5-11.0); Platelet Count 214 K/mm3 (150-450); Red Blood Count 2.97 M/mm3 (4.1-5.4); Red Cell Distribution Width 14.2 % (11.5-14.0)
[2019-08-13 05:20] LABS: ALBUMIN 2.6 g/dL (3.5-5.0); BLOOD UREA NITROGEN 12 mg/dL (7-17); CHLORIDE 106 mmol/L (98-107); Calcium 8.2 mg/dL (8.4-10.2); Carbon Dioxide 24 mmol/L (22-30); Creatinine 1 0.46 mg/dL (0.52-1.04); Glucose 116 mg/dL (74-106); MAGNESIUM 1.9 mg/dL (1.6-2.3); Potassium 4.5 mmol/L (3.5-5.1); SODIUM 136 mmol/L (137-145)
[2019-08-13] MEDS: FLAGYL 500 MG IVPB 500 MG/100 ML BAG IV SCH (05:54)
--- NOTE | 2019-08-13 08:38 | PCM.NOTE ---
Date and Time: 08/13/19 0833 Subjective Assessment: Patient started passing gas yesterday and NG tube was removed. She is taking some clear liquids. She states she continues to pass gas. She is pleased to have the NG tube out. She thinks she will be strong enough to take care of herself at home and is not even sure she will need home health. She reports she lives alone but it is a small apartment all on one story and her daughters will check on her. - Review of Systems Constitutional: Weakness Respiratory: No Symptoms Cardiac: No Symptoms Abdominal/Gastrointestinal: Abdominal Pain Genitourinary Symptoms: No Symptoms Musculoskeletal: No Symptoms Objective Exam General Appearance: no apparent distress Neurologic Exam: alert, cooperative, normal mood/affect Skin Exam: normal color, warm Wound Assessment: Skin/Wound Assessment Wound/Incision Assessment Start: 08/06/19 20: 09 Text: Status: Active Freq: Q6H Protocol: Document 08/07/19 20:00 AW (Rec: 08/07/19 23:06 AW [id number]) Wound/Incision Assessment Lower Abdomen Wound Assessment Shift Assessment Wound Type Incision Wound Stage Non Pressure Wound Drainage Amount None Surrounding Tissue [place] Primary Dressing ISLAND DRESSING Comment MIDLINE INCSION, NO NEW DRAINAGE NOTED, 2 MIAH DRAINS BILATERAL ABDOMEN, ABDOMINAL BINDER IN PLACE Wound/Incision Assessment Start: 08/07/19 23: 07 Text: Status: Active Freq: Q6H Protocol: Document 08/13/19 03:00 ST (Rec: 08/13/19 03:03 ST [id number]) Wound/Incision Assessment Lower Abdomen Wound Assessment Shift Assessment Wound Type Incision Wound Stage Non Pressure Wound Dressing Status Drainage circled Drainage Amount Minimal Drainage Description Serous Drainage Odor None/Absent Primary Dressing ISLAND DRESSING Comment Island dressing covering midline incision. Small amount of shadowing from serous drainage noted, circled by previous nurse. No change noted from prevously circled drainage. Right and left MIAH drains in place and draining serosanguinous drainage. Abdominal binder for comfort. Wound Photo Photo Taken No Respiratory Exam: normal breath sounds, lungs clear, No crackles/rales, No rhonchi, No wheezing Cardiovascular Exam: regular rate/rhythm, normal heart sounds, No murmur, No friction rub, No gallop Gastrointestinal/Abdomen Exam: other (abdominal binder in place) Extremity Exam: other (no c/c/e) OBJECTIVE DATA Vital Signs: Vital Signs - 24 hr Temp Pulse Resp BP Pulse Ox 08/13/19 08:00 98.3 F 88 20 145/66 97 08/13/19 06:48 95 08/13/19 04:01 98.5 F 81 18 131/62 96 08/12/19 23:57 98.7 F 84 20 124/60 96 08/12/19 19:39 98.2 F 89 20 128/60 96 08/12/19 19:36 97 08/12/19 16:29 95 08/12/19 16:00 98.2 F 83 18 143/65 95 08/12/19 12:29 95 08/12/19 12:00 97.7 F 77 18 148/67 96 08/12/19 10:40 96 Pain Assessment - Last Documented Pain Intensity 2 Pain Scale Used 0-10 Pain Scale Intake and Output: Intake & Output 08/11/19 08/12/19 08/13/19 08/14/19 06:59 06:59 06:59 06:59 Intake Total 2986 2670 3114 Output Total 124 814 9903 Balance 2027 1870 99 Weight 83.1 kg 83.1 kg 84.5 kg Lab Results: Accuchecks Date 08/13/19 Date 08/12/19 Date 08/12/19 Date 08/12/19 Time 05:54 Time 23:50 Time 17:58 Time 12:00 Accucheck Value: 116 Accucheck Value: 134 Accucheck Value: 152 Accucheck Value: 136 Lab Results-Last 24 Hours 08/13/19 08/13/19 08/13/19 Range/Units 04:20 04:20 04:20 WBC 6.0 (4.0-10.5) K/mm3 RBC 2.97 L (4.1-5.4) M/mm3 Hgb 8.8 L (12.0-16.0) gm/dl Hct 27.7 L (35-47) % MCV 93.3 (78-100) fl MCH 29.6 (26-32) pg MCHC 31.8 L (32-36) g/dl RDW 14.2 H (11.5-14.0) % Plt Count 214 (150-450) K/mm3 MPV 10.3 (7.5-11.0) fl Sodium 136 L (137-145) mmol/L Potassium 4.5 (3.5-5.1) mmol/L Chloride 106 (98-107) mmol/L Carbon Dioxide 24 (22-30) mmol/L Anion Gap 10.0 (5-15) MEQ/L BUN 12 (7-17) mg/dL Creatinine 0.46 L (0.52-1.04) mg/dL Estimated GFR > 60.0 ML/MIN Glucose 116 H (74-106) mg/dL Calcium 8.2 L (8.4-10.2) mg/dL Magnesium 1.9 (1.6-2.3) mg/dL Serum Total Protein 4.4 L (6.3-8.2) g/dL Albumin 2.6 L (3.5-5.0) g/dL Radiology Exams: Radiology Procedures Category Date Time Status CHEST 1 VIEW (PORTABLE) Stat Exams 08/12/19 06:40 Completed Assessment/Plan (1) Small bowel obstruction Current Visit: Yes Status: Acute Assessment & Plan: Management per general surgeon. She had return of some bowel function yesterday and NG tube was removed last night. Code(s): K56.69 - OTHER INTESTINAL OBSTRUCTION * DO NOT USE * (2) HTN (hypertension) Current Visit: Yes Status: Acute Qualifiers: Hypertension type: essential hypertension Qualified Code(s): I10 - Essential (primary) hypertension Assessment & Plan: Continue current medication. Code(s): I10 - ESSENTIAL (PRIMARY) HYPERTENSION (3) Poor nutrition Current Visit: Yes Status: Acute Assessment & Plan: She has started clear liquids. Discussed with pharmacist and manager lvn and plan to stop PPN after this bag is complete. Discussed with patient as well. Code(s): E63.9 - NUTRITIONAL DEFICIENCY, UNSPECIFIED (4) Diverticulitis small intestine Current Visit: Yes Status: Acute Assessment & Plan: Currently on metronidazole and levofloxacin per general surgeon's orders. Code(s): K57.12 - DVTRCLI OF SM INT W/O PERFORATION OR ABSCESS W/O BLEEDING (5) Peripheral edema Current Visit: Yes Status: Acute Assessment & Plan: Improved. Code(s): R60.9 - EDEMA, UNSPECIFIED
[2019-08-13] MEDS: Paxil 20 MG PO SCH (08:46)
[2019-08-13] MEDS: Pepcid 20 MG PO SCH ×2 (08:46→21:26)
[2019-08-13] MEDS: Cozaar 50 MG PO SCH (08:46)
[2019-08-13] MEDS: COREG 12.5 MG PO SCH ×2 (08:49→21:26)
[2019-08-13] MEDS: Levofloxacin 500MG/100ML D5W 500 MG/100 ML BAG IV SCH (08:49)
[2019-08-13] MEDS: NORVASC 5 MG PO SCH (08:49)
[2019-08-13 08:59] LABS: BAND 2 % (0.0-2.0); Eosinophil 3 % (0.00-3.0); Lymphocytes 8 % (24-44); Monocyte 9 % (0.0-12.0); Neutrophils 78 % (36.0-66.0); Platelet Estimate NORMAL (NORMAL); Polychromasia 1+; Total Cells Counted 100
[2019-08-13] MEDS: ENOXAPARIN SODIUM SQ SCH (14:20)
[2019-08-14] MEDS: Cozaar 50 MG PO SCH (09:20)
[2019-08-14] MEDS: Paxil 20 MG PO SCH (09:21)
[2019-08-14] MEDS: Pepcid 20 MG PO SCH ×2 (09:22→21:29)
[2019-08-14] MEDS: COREG 12.5 MG PO SCH ×2 (09:22→21:29)
[2019-08-14] MEDS: NORVASC 5 MG PO SCH (09:22)
[2019-08-14] MEDS ORDERED: NORCO 5/325 MG PO PRN (09:42)
--- NOTE | 2019-08-14 09:44 | PCM.NOTE ---
Date and Time: 08/14/19942 Subjective Assessment: patient had a bowel movement, she is tolerating liquids and able to get up and ambulate to the restroom. 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 pulse oximetry removed Objective Exam General Appearance: no apparent distress Neurologic Exam: alert, oriented x 3 Wound Assessment: Skin/Wound Assessment Wound/Incision Assessment Start: 08/06/19 20: 09 Text: Status: Active Freq: Q6H Protocol: Document 08/07/19 20:00 AW (Rec: 08/07/19 23:06 AW [id number]) Wound/Incision Assessment Lower Abdomen Wound Assessment Shift Assessment Wound Type Incision Wound Stage Non Pressure Wound Drainage Amount None Surrounding Tissue [place] Primary Dressing ISLAND DRESSING Comment MIDLINE INCSION, NO NEW DRAINAGE NOTED, 2 MIAH DRAINS BILATERAL ABDOMEN, ABDOMINAL BINDER IN PLACE Wound/Incision Assessment Start: 08/07/19 23: 07 Text: Status: Active Freq: Q6H Protocol: Document 08/14/19 09:00 AR (Rec: 08/14/19 09:10 AR [id number]) Wound/Incision Assessment Lower Abdomen Wound Assessment Shift Assessment Wound Type Incision Wound Stage Non Pressure Wound Dressing Status Drainage circled Drainage Amount Minimal Primary Dressing ISLAND DRESSING Comment Small amount of shadowing from serous drainage noted, circled by previous nurse. No change noted from prevously circled drainage. Abdominal binder in place Wound Photo Photo Taken No Respiratory Exam: normal breath sounds, lungs clear, No respiratory distress Cardiovascular Exam: regular rate/rhythm, normal heart sounds Gastrointestinal/Abdomen Exam: soft, other (MIAH drain scant serosang. fluid, dressings intact) Extremity Exam: normal inspection, normal range of motion OBJECTIVE DATA Vital Signs: Vital Signs - 24 hr Temp Pulse Resp BP Pulse Ox 08/14/19 08:00 97.9 F 81 18 143/65 96 08/14/19 06:53 95 08/14/19 04:29 96 08/14/19 04:00 97.9 F 85 20 129/60 97 08/14/19 00:29 95 08/14/19 00:00 98 F 83 18 136/63 97 08/13/19 20:29 97 08/13/19 20:05 97 08/13/19 19:43 98.6 F 82 20 129/60 97 08/13/19 16:29 97 08/13/19 16:00 98.0 F 80 18 127/59 95 08/13/19 12:29 97 08/13/19 12:00 97.7 F 79 18 140/64 99 Pain Assessment - Last Documented Pain Intensity 2 Pain Scale Used 0-10 Pain Scale Intake and Output: Intake & Output 08/11/19 08/12/19 08/13/19 08/14/19 11:59 11:59 11:59 11:59 Intake Total 2986 2670 3234 2152 Output Total 4107 879 7992 1187 Balance 1828 1730 259 965 Weight 83.1 kg 83.1 kg 84.5 kg 80.8 kg Lab Results: Accuchecks Accucheck Value: 113 Multi-Disciplinary Progress Notes: Multi-Disciplinary Progress Notes 08/13/19 12:34 Case Management Note by Slime Lance PATIENT ADVANCING DIET TODAY, WILL FOLLOW FOR DC NEEDS Initialized on 08/13/19 12:34 - END OF NOTE Assessment/Plan (1) Small bowel obstruction Current Visit: Yes Status: Acute Assessment & Plan: tolerating po, progressing well Code(s): K56.69 - OTHER INTESTINAL OBSTRUCTION * DO NOT USE * (2) Diverticulitis small intestine Current Visit: Yes Status: Acute Code(s): K57.12 - DVTRCLI OF SM INT W/O PERFORATION OR ABSCESS W/O BLEEDING
[2019-08-14] MEDS: DILAUDID 1 MG/1ML PCA IV PRN (10:03)
[2019-08-14] MEDS: ENOXAPARIN SODIUM SQ SCH (14:55)
[2019-08-15] MEDS: Sodium Chloride 0.9% 1000 ML 1,000 ML IV SCH ×2 (07:55→09:20)
--- NOTE | 2019-08-15 08:46 | PCM.NOTE ---
Date and Time: 08/15/1945 Subjective Assessment: patient is up in a chair, tolerating breakfast with no nausea and overall feeling much better. she is hoping to go home soon Objective Exam General Appearance: no apparent distress, alert Wound Assessment: Skin/Wound Assessment Wound/Incision Assessment Start: 08/06/19 20: 09 Text: Status: Active Freq: Q6H Protocol: Document 08/07/19 20:00 AW (Rec: 08/07/19 23:06 AW [id number]) Wound/Incision Assessment Lower Abdomen Wound Assessment Shift Assessment Wound Type Incision Wound Stage Non Pressure Wound Drainage Amount None Surrounding Tissue [place] Primary Dressing ISLAND DRESSING Comment MIDLINE INCSION, NO NEW DRAINAGE NOTED, 2 MIAH DRAINS BILATERAL ABDOMEN, ABDOMINAL BINDER IN PLACE Wound/Incision Assessment Start: 08/07/19 23: 07 Text: Status: Active Freq: Q6H Protocol: Document 08/15/19 08:01 [facility] (Rec: 08/15/19 08:07 [facility] [id number]) Wound/Incision Assessment Lower Abdomen Wound Assessment Shift Assessment Wound Type Incision Dressing Status Dry & Intact General Appearance Well Approximated Surrounding Tissue [place] Primary [place] Comment Old drainage no new increase in drainage at this time. Wound Photo Photo Taken No Respiratory Exam: normal breath sounds, lungs clear, No respiratory distress Cardiovascular Exam: regular rate/rhythm, normal heart sounds Gastrointestinal/Abdomen Exam: soft, normal bowel sounds Extremity Exam: normal inspection, normal range of motion OBJECTIVE DATA Vital Signs: Vital Signs - 24 hr Temp Pulse Resp BP Pulse Ox 08/15/19 07:59 97.7 F 67 16 142/66 95 08/15/19 04:10 97.9 F 70 17 136/63 96 08/14/19 23:54 98.8 F 77 20 137/64 95 08/14/19 19:48 98.4 F 86 18 136/63 96 08/14/19 16:00 98.5 F 77 16 122/56 94 L 08/14/19 12:00 98.3 F 82 20 143/65 95 Pain Assessment - Last Documented Pain Intensity 2 Pain Scale Used 0-10 Pain Scale Intake and Output: Intake & Output 08/12/19 08/13/19 08/14/19 08/15/19 11:59 11:59 11:59 11:59 Intake Total 9915 9745 8252 616 Output Total 940 2975 1187 1967 Balance 1730 259 775 1351 Weight 83.1 kg 84.5 kg 80.8 kg 79.6 kg Multi-Disciplinary Progress Notes: Multi-Disciplinary Progress Notes 08/14/19 10:02 Case Management Note by Slime Lance S/W PATIENT- SHE CONTINUES TO WISH TO RETURN HOME AT [place]. SHE REFUSES THE NEED FOR HOME HEALTH AT THIS TIME. NURSING TO GET DRESSING CHANGE INSTRUCTIONS FOR WHEN PATIENT DISCHARGES SO THAT WE CAN PLAN ACCORDINGLY. WILL CONTINUES TO FOLLOW Initialized on 08/14/19 10:02 - END OF NOTE Assessment/Plan (1) Small bowel obstruction Current Visit: Yes Status: Acute Assessment & Plan: doing well postop, ok to d/c to home when ok with surgery Code(s): K56.69 - OTHER INTESTINAL OBSTRUCTION * DO NOT USE * (2) Diverticulitis small intestine Current Visit: Yes Status: Acute Code(s): K57.12 - DVTRCLI OF SM INT W/O PERFORATION OR ABSCESS W/O BLEEDING
[2019-08-15] MEDS: NORVASC 5 MG PO SCH (09:14)
[2019-08-15] MEDS: COREG 12.5 MG PO SCH (09:14)
[2019-08-15] MEDS: Cozaar 50 MG PO SCH (09:14)
[2019-08-15] MEDS: Pepcid 20 MG PO SCH (09:15)
[2019-08-15] MEDS: Paxil 20 MG PO SCH (09:17)
[2019-08-15] MEDS: ENOXAPARIN SODIUM SQ SCH (15:24)
--- NOTE | 2019-08-15 15:32 | PCM.DS ---
Discharge Summary Date of Admission: 08/04/19 12:33 Admitting Physician: RUBINA FERRARI Consults: Consults on Case 08/07/19 11:08 Diet Consult [Nutritional Consult] Primary Care Provider: FIDE BUTTS Allergies Allergies morphine Adverse Reaction (Mild, Verified 08/04/19 17:55) Vomiting Hospital Summary - Hospital Course Hospital Course: patient underwent ex lap on 08/06/[address] Marie which revealed small bowel diverticulitis and internal hernia, which was resected/repaired. postop she has done well, she is tolerating regular diet and bowels are moving. she is able to get up and ambulate to the restroom and will return to home with home health. antibiotics have been completed and discontinued following surgery with levaquin /flagyl. - Vitals & Intake/Output Vital Signs: Vital Signs Temperature 98.5 F 08/15/19 12:00 Pulse Rate 69 08/15/19 12:00 Respiratory Rate 16 08/15/19 12:00 Blood Pressure 129/59 08/15/19 12:00 O2 Sat by Pulse Oximetry 93 L 08/15/19 12:00 Intake & Output: Intake & Output 08/13/19 08/14/19 08/15/19 08/16/19 11:59 11:59 11:59 11:59 Intake Total 3234 2152 616 Output Total 2975 1187 1977 Balance 259 965 -1361 Weight 84.5 kg 80.8 kg 79.6 kg - Lab Result Diagrams: 08/13/19 04:20 08/13/19 04:20 Micro Results-Entire Visit: Microbiology 08/06/19 16:51 Wound Culture - Final Abdomen - Not Known NO GROWTH 08/06/19 15:12 Urine Culture - Final Catherized NO GROWTH - Procedures and Test Procedures and Tests throughout Hospitalization: Therapy Orders & Screens 08/04/19 17:16 Oxygen Nasal Cannula 2 lpm Comment: Diagnosis: small bowel obstruction 08/06/19 18:45 Incentive Spirometry UD Comment: 10 breaths every 1 hour while awake Diagnosis: small bowel obstruction Discharge Exam General Appearance: no apparent distress, alert Respiratory Exam: normal breath sounds, lungs clear, No respiratory distress Cardiovascular Exam: regular rate/rhythm, normal heart sounds Gastrointestinal/Abdomen Exam: soft, normal bowel sounds, other (keyur intact) Extremity Exam: normal inspection, normal range of motion Skin Exam: normal color, warm, dry Wound Assessment: Skin/Wound Assessment Wound/Incision Assessment Start: 08/06/19 20: 09 Text: Status: Active Freq: Q6H Protocol: Document 08/07/19 20:00 AW (Rec: 08/07/19 23:06 AW [id number]) Wound/Incision Assessment Lower Abdomen Wound Assessment Shift Assessment Wound Type Incision Wound Stage Non Pressure Wound Drainage Amount None Surrounding Tissue [place] Primary Dressing ISLAND DRESSING Comment MIDLINE INCSION, NO NEW DRAINAGE NOTED, 2 MIAH DRAINS BILATERAL ABDOMEN, ABDOMINAL BINDER IN PLACE Wound/Incision Assessment Start: 08/07/19 23: 07 Text: Status: Active Freq: Q6H Protocol: Document 08/15/19 15:00 AB (Rec: 08/15/19 15:23 AB [id number]) Wound/Incision Assessment Lower Abdomen Wound Assessment Shift Assessment Wound Type Incision Dressing Status Dry & Intact General Appearance Well Approximated Surrounding Tissue [place] Primary [place] Comment Drsg new and no drainage noted . Wound Photo Photo Taken No Final Diagnosis/Problem List - Final Discharge Diagnosis/Problem (1) Small bowel obstruction Current Visit: Yes Status: Acute Code(s): K56.69 - OTHER INTESTINAL OBSTRUCTION * DO NOT USE * (2) Diverticulitis small intestine Current Visit: Yes Status: Acute Code(s): K57.12 - DVTRCLI OF SM INT W/O PERFORATION OR ABSCESS W/O BLEEDING - Discharge Disposition: Home, Self-Care Condition: Stable Prescriptions: New Famotidine 20 mg [Pepcid 20 MG] 20 mg PO BID #60 tablet Continue Paroxetine HCl 5 mg PO DAILY Losartan Potassium 50 mg [Cozaar 50 MG] 100 mg PO DAILY Carvedilol 6.25 mg [Coreg 6.25 MG] 12.5 mg PO BID Alendronate Sodium 70 mg PO WEEKLY Amlodipine Besylate 5 mg [Norvasc 5 mg] 5 mg PO DAILY Atorvastatin Calcium [Lipitor] 80 mg PO DAILY Furosemide 20 mg [Lasix 20 mg] 20 mg PO DAILY Cholecalciferol (Vitamin D3) [Vitamin D3] 25 mcg PO DAILY Vit C/E/Zn/Coppr/Lutein/Zeaxan [Preservision Areds 2 Softgel] 1 each PO BID Nitroglycerin 0.4 mg Tablet [Nitrostat 0.4 MG Tablet] 0.4 mg SL Q5MIN PRN MR X 3 PRN PRN Reason: Chest Pain Follow up with: FIDE BUTTS [Primary Care Provider] - 08/28/19 1:30 pm VIVIAN MARIE [COURTESY STAFF] - 08/20/19 9:10 am
[2019-08-15 16:48] VITALS: BP 116/57; PULSE 73; O2SAT 95
== END 2019-08-15 18:10 | disposition home or self-care (01) | DRG 330 ==
LOC: ED 14:37 → ICU 18:43 → OBSVTOIN 08-04 12:33 → MED SURG 08-07 20:46
PROVIDERS: ADMIT Family Medicine; ATTEND Family Medicine
PROC: 0DTA0ZZ Resection of Jejunum, Open Approach (ICD-10-PCS; principal; 2019-08-06)
PROC: 0DQV0ZZ Repair Mesentery, Open Approach (ICD-10-PCS; 2019-08-06)
PROC: 0DNW0ZZ Release Peritoneum, Open Approach (ICD-10-PCS; 2019-08-06)
PROC: 0DBV0ZX Excision of Mesentery, Open Approach, Diagnostic (ICD-10-PCS; 2019-08-06)
PROC: 02HV33Z Insertion of Infusion Device into Superior Vena Cava, Percutaneous Approach (ICD-10-PCS; 2019-08-09)
DX: K56.609 Unspecified intestinal obstruction, unspecified as to partial versus complete obstruction (principal); K57.12 Diverticulitis of small intestine without perforation or abscess without bleeding; K56.50 Intestinal adhesions [bands], unspecified as to partial versus complete obstruction; K46.9 Unspecified abdominal hernia without obstruction or gangrene; I10 Essential (primary) hypertension; K44.9 Diaphragmatic hernia without obstruction or gangrene; E78.00 Pure hypercholesterolemia, unspecified; R53.1 Weakness; R11.10 Vomiting, unspecified; E63.9 Nutritional deficiency, unspecified; R53.83 Other fatigue; R60.9 Edema, unspecified; Z79.899 Other long term (current) drug therapy; Z90.49 Acquired absence of other specified parts of digestive tract
CPT/HCPCS: 36000; 36415; 36573; 44005; 44050; 44120; 49999; 64488; 71045; 74021; 74177; 74250; 76937; 76942; 77001; 80048; 80053; 81001; 82040; 82150; 82962; 83036; 83690; 83735; 84155; 84484; 85025; 85027; 85610; 85730; 86850; 86900; 86901; 87070; 87086; 93005; 94762; 96374; 96375; 96376; 99285; G0378; 88305; 88307; 94760; 99100; C1769; J0694; J1100; J1170; J1642; J1650; J1885; J1940; J1956; J2060; J2270; J2405; J2550; J2704; J3010; J3480; L0625; A9270-GY

== ENCOUNTER 2024-03-09 09:18 | Emergency (ER) | payer MEDICARE ==
--- NOTE | 2024-03-09 09:21 | ERPHSYRPT ---
- History of Present Illness Time Seen by Provider: 03/09/24 09:20 Source: patient, family Exam Limitations: no limitations Physician History: This is an 88-year-old white female patient who presents with right knee and right hip pain that has been present chronically but worse in the last week. Patient arrives by private vehicle accompanied by family/friend. Patient states that her right knee is painful and swollen. 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 She did not suffer any traumatic injury or fall. Patient has an appointment to see an orthopedic surgeon in approximately 2 to 3 weeks. However, she did not feel she could wait that long to be seen. Patient has a history of hypertension, depression and hyperlipidemia. Patient states that she is taking 650 mg of Tylenol 2-3 times a day. Method of Injury: other (No injury) Occurred: other (Chronic but worse in the last week) Quality: aching Severity of Pain-Max: mild (To moderate) Severity of Pain-Current: mild (To moderate) Lower Extremities Pain: hip: right, knee: right Modifying Factors: Improves With: movement Associated Symptoms: other (Hurts to bear weight) Allergies/Adverse Reactions: morphine Adverse Reaction (Mild, Verified 08/04/19 17:55) Vomiting Home Medications: Carvedilol [Coreg ] 12.5 mg PO BID 05/01/13 [History] Losartan Potassium 50 mg [Cozaar 50 MG] 100 mg PO DAILY 05/01/13 [History] PARoxetine HCL [Paroxetine HCl] 5 mg PO DAILY 05/01/13 [History] Alendronate Sodium 70 mg PO WEEKLY 08/03/19 [History] Amlodipine Besylate 5 mg [Norvasc 5 mg] 5 mg PO DAILY 08/03/19 [History] Atorvastatin Calcium [Lipitor] 80 mg PO DAILY 08/03/19 [History] Cholecalciferol (Vitamin D3) [Vitamin D3] 25 mcg PO DAILY 08/03/19 [History] Furosemide 20 mg [Lasix 20 mg] 20 mg PO DAILY 08/03/19 [History] Nitroglycerin 0.4 mg Tablet [Nitrostat 0.4 MG Tablet] 0.4 mg SL Q5MIN PRN MR X 3 PRN 08/03/19 [History] Vit C/E/Zn/Coppr/Lutein/Zeaxan [Preservision Areds 2 Softgel] 1 each PO BID 08/03/19 [History] Hx Tetanus, Diphtheria Vaccination/Date Given: No Hx Influenza Vaccination/Date Given: Yes (2012) Hx Pneumococcal Vaccination/Date Given: Yes Travel Risk - International Travel Have you traveled outside of the country in past 3 weeks: No - Emerging Infectious Disease Are you exhibiting symptoms associated with any current EIDs: No - Review of Systems Constitutional: No Symptoms Eyes: No Symptoms Ears, Nose, & Throat: No Symptoms Respiratory: No Symptoms Cardiac: No Symptoms Abdominal/Gastrointestinal: No Symptoms Musculoskeletal: Joint Pain (Right hip and right knee), No Fall, No Injury Skin: No Symptoms Neurological: No Symptoms Psychological: No Symptoms Endocrine: No Symptoms Hematologic/Lymphatic: No Symptoms Immunological/Allergic: No Symptoms All Other Systems: Reviewed and Negative - Past Medical History Pertinent Past Medical History: Yes Neurological History: No Pertinent History ENT History: No Pertinent History Cardiac History: High Cholesterol, Hypertension Respiratory History: No Pertinent History Endocrine Medical History: No Pertinent History Musculoskeletal History: No Pertinent History GI Medical History: Diverticulitis, Diverticulosis History: No Pertinent History Psycho-Social History: Depression Female Reproductive Disorders: No Pertinent History - Past Surgical History Past Surgical History: Yes Neuro Surgical History: No Pertinent History Cardiac: Cardiac Catheterization, Cardiac Stent Respiratory: No Pertinent History Gastrointestinal: Appendectomy, Bowel Surgery Genitourinary: No Pertinent History Musculoskeletal: No Pertinent History Female Surgical History: Hysterectomy Other Surgical History: plate in left wrist., blocked bowel that required straightening of her colon Significant Family History: no pertinent family hx - Social History Smoking Status: Never smoker Exposure to second hand smoke: Yes Drug Use: none Patient Lives Alone: Yes - Nursing Vital Signs Nursing Vital Signs: Initial Vital Signs Temperature 98.2 F 03/09/24 09:27 Pulse Rate 82 03/09/24 09:27 Respiratory Rate 18 03/09/24 09:27 Blood Pressure 187/72 03/09/24 09:27 O2 Sat by Pulse Oximetry 95 03/09/24 09:27 Pain Scale Pain Intensity 0 - Physical Exam General Appearance: no apparent distress, alert Eyes, Ears, Nose, Throat Exam: normal ENT inspection, moist mucous membranes Neck Exam: normal inspection, non-tender, supple, full range of motion Cardiovascular/Respiratory Exam: chest non-tender, no respiratory distress Gastrointestinal/Abdominal Exam: non-tender Back Exam: normal inspection, normal range of motion, No CVA tenderness, No vertebral tenderness Hips Exam: right: bone tenderness, pain, left: non-tender, bilateral: normal inspection, normal range of motion, no evidence of injury Legs Exam: bilateral leg: non-tender, normal inspection, normal range of motion, no evidence of injury Knees Exam: right knee: bone tenderness, soft tissue tenderness, swelling, left knee: non-tender, normal inspection, normal range of motion, no evidence of injury Ankle Exam: bilateral ankle: non-tender, normal inspection, normal range of motion, no evidence of injury Foot Exam: bilateral foot: non-tender, normal inspection, normal range of motion, no evidence of injury Neuro/Tendon Exam: normal sensation, normal motor functions, normal tendon functions, responds to pain, no evidence tendon injury Mental Status Exam: alert, oriented x 3, cooperative Skin Exam: normal color, warm, dry SpO2 Interpretation: normal O2 Delivery: Room Air - Course Nursing assessment & vital signs reviewed: Yes Ordered Tests: Active Orders 24 hr Category Date Time Status HIP UNI (2V) INCL PEL IF DONE Stat Exams 03/09/24 09:45 Completed KNEE (3 VIEWS) Stat Exams 03/09/24 09:36 Completed - Progress Progress: pain not gone completely Progress Note: 03/09/24 10:22 My medical decision making and the assignment of low complexity to this p atient's medical issue today is based on review of the patient's past medical history, review of the patient's medication list, reviewed patient drug allergy list, history present illness and physical findings on examination. The workup in this patient includes x-ray of the patient's right hip and right knee. Differential diagnosis includes but is not limited to arthritis, fracture/dislocation 03/09/24 10:44 The following plain x-rays were interpreted by the radiologist and I reviewed the impression: Right hip x-ray shows osteopenia without evidence of acute fracture or dislocation. There are chronic changes present. Right knee x-ray shows osteopenia without evidence of acute fracture or dislocation. There are chronic changes present. There is a tiny, nonspecific effusion Counseled pt/family regarding: diagnosis, need for follow-up, rad results Medical Desision Making - Independent Historian Additional History obtained from: Relative/friend - Diagnostic Testing Diagnostic test were ordered, analyzed, and reviewed by me: Yes Radiological Interpretation: Reviewed by me, Teleradiologist Report - Risk of complications The pt has a mod risk of morbidity or mortality based on: Need for prescription drug management - Departure Departure Disposition: Home Clinical Impression: Right hip pain, Right knee pain Condition: Stable Critical Care Time: No Referrals: FIDE BUTTS [Primary Care Provider] - Follow up/PCP as directed Additional Instructions: Continue Tylenol 650 mg orally 3-4 times a day. Take your steroid and muscle relaxant as prescribed. Keep your appointment to see your orthopedic surgeon. Prescriptions: Cyclobenzaprine HCl 10 mg [Cyclobenzaprine 10 MG] 10 mg PO BID #10 tablet Prednisone 5 mg [Deltasone 5 mg] 5 mg PO TID #12 tablet
[2024-03-09 09:32] VITALS: RESP 18; TEMP 98.2
[2024-03-09 10:22] VITALS: BP 152/51; PULSE 69; O2SAT 94
--- NOTE | 2024-03-09 10:33 | XRAY ---
Indication: Pain and swelling. No known injury. Comparison: None 3 view right knee demonstrating osteopenia, minimal/mild tricompartmental degenerative changes, tiny posterior fabella, tiny nonspecific effusion, and mild scattered vascular calcifications. No other bony, articular, or soft tissue abnormalities.
--- NOTE | 2024-03-09 10:33 | XRAY ---
Indication: Pain. No known injury. Comparison: None AP pelvis and 2-view right hip demonstrates osteopenia, mild degenerative changes both hips, and mild degenerative changes visualized lower lumbar spine. No acute bony, articular, or soft tissue abnormalities.
== END 2024-03-09 11:10 | disposition home or self-care (01) ==
LOC: ED 09:18
DX: M25.551 Pain in right hip (principal); M25.561 Pain in right knee; I10 Essential (primary) hypertension; E78.5 Hyperlipidemia, unspecified; Z79.52 Long term (current) use of systemic steroids; Z79.899 Other long term (current) drug therapy
CPT/HCPCS: 73502; 73562; 99282; 99283